=== PATIENT | female | born 1950 | race Caucasian/White ===

== ENCOUNTER 2022-05-21 14:33 | Outpatient (REF) | payer MEDICARE, SELFPAY ==
[2022-05-21 17:46] LABS: Alanine Aminotransferase 17 U/L (0-31); Albumin Level 4.6 g/dL (3.5-5.0); Alkaline Phosphatase 82 U/L (39-117); Anion Gap 17 (12-20); Aspartate Amino Transferase 21 U/L (5-31); Bilirubin Total 1.8 mg/dL (0.0-1.0); Blood Urea Nitrogen 8 mg/dL (9-16); Calcium 9.9 mg/dL (8.4-10.2); Carbon Dioxide 25 mmol/L (22-29); Chloride 104 mmol/L (96-108); Estimated Glomerular Filt Rate > 60; Glucose Random 122 mg/dL (60-115); Potassium 3.8 mmol/L (3.3-5.1); Sodium 142 mmol/L (135-145); Total Protein 7.1 g/dL (6.5-8.0)
== END 2022-05-21 14:34 | disposition home or self-care (01) ==
LOC: HO.MANLDS 14:33
PROVIDERS: Visit Provider Internal Medicine
DX: I48.91 Unspecified atrial fibrillation (principal)
CPT/HCPCS: 36415; 80053; 83735

== ENCOUNTER 2023-05-31 09:55 | Outpatient (REF) | payer MEDICARE, OTHER, SELFPAY ==
[2023-05-31 13:33] LABS: MANUAL DIFF FLAG NO
[2023-05-31 13:50] LABS: Basophils Percent Auto 0.6 % (0-2); Eosinophils Absolute Auto 0.2 X10*3/uL (0.0-0.4); Eosinophils Percent Auto 3.3 % (0-4); Hemoglobin 13.3 g/dl (12.0-16.0); Imm Gran Abs Auto 0.01 X10*3/uL (0.00-0.03); Imm Gran Pct Auto 0.2 % (0.0-0.4); Lymphocytes Absolute Auto 1.3 X10*3/uL (1.2-4.9); Lymphocytes Percent Auto 24.7 % (20-40); Mean Corpuscular HGB Conc 32.4 g/dl (31.0-35.0); Mean Corpuscular Hemoglobin 29.5 pg (27.0-33.0); Mean Corpuscular Volume 90.9 fL (80.0-98.0); Monocytes Absolute Auto 0.3 X10*3/uL (0.1-1.2); Monocytes Percent Auto 6.3 % (2-11); Neutrophils Absolute Auto 3.4 x10*3/uL (2.0-8.3); Neutrophils Percent Auto 64.9 % (45-73); Platelet Count 164 X10*3/uL (160-400); Red Blood Count 4.51 X10*6/uL (4.20-5.50); Red Cell Distribution Width 13.4 % (11.0-16.0); White Blood Count 5.2 X10*3/uL (4.8-10.8)
[2023-05-31 14:10] LABS: Alanine Aminotransferase 13 U/L (0-31); Alkaline Phosphatase 67 U/L (39-117); Anion Gap 12 (12-20); Aspartate Amino Transferase 18 U/L (5-31); Bilirubin Total 1.6 mg/dL (0.0-1.0); Blood Urea Nitrogen 10 mg/dL (9-16); Calcium 9.4 mg/dL (8.4-10.2); Carbon Dioxide 27 mmol/L (22-29); Chloride 107 mmol/L (96-108); Cholesterol 194 mg/dL; Estimated Glomerular Filt Rate > 60; Glucose Random 95 mg/dL (60-115); HDL Cholesterol 34 mg/dL; Iron 85 mcg/dL (30-160); LDL Cholesterol Calculated 103 mg/dl; Percent Iron Saturation 27 % (15-50); Sodium 142 mmol/L (135-145); Total Iron Binding Capacity 314 mcg/dL (228-428); Total Protein 6.7 g/dL (6.5-8.0); Triglycerides 287 mg/dL; Unsaturated Iron Binding 229 ug/dL
[2023-05-31 14:26] LABS: Erythrocyte Sedimentation Rate 32 MM/HR (0-20)
[2023-05-31 14:33] LABS: Ferritin 94 ng/mL (10-250); Free T4 (Free Thyroxine) 0.99 ng/dL (0.71-1.85); Thyroid Stimulating Hormone 1.63 uIU/mL (0.32-4.0); Vitamin D 25-OH Total 47.3 ng/mL (>30)
[2023-05-31 14:39] LABS: Vitamin B12 327 pg/mL (200-900)
== END 2023-05-31 09:56 | disposition home or self-care (01) ==
LOC: HO.MANLDS 09:55
PROVIDERS: Visit Provider Internal Medicine
DX: Z00.00 Encounter for general adult medical examination without abnormal findings (principal); E55.9 Vitamin D deficiency, unspecified; R41.3 Other amnesia
CPT/HCPCS: 36415; 80053; 80061; 82306; 82607; 82728; 82746; 83540; 84439; 84443; 85025; 85652

== ENCOUNTER 2025-10-01 16:08 | Outpatient (REF) | payer MEDICARE, OTHER, SELFPAY ==
[2025-10-01 18:54] LABS: Alanine Aminotransferase 19 U/L (0-31); Albumin Level 4.2 g/dL (3.5-5.0); Alkaline Phosphatase 77 U/L (39-117); Anion Gap 15 (12-20); Aspartate Amino Transferase 36 U/L (5-31); Blood Urea Nitrogen 15 mg/dL (9-16); Calcium 8.9 mg/dL (8.4-10.2); Carbon Dioxide 18 mmol/L (22-29); Chloride 111 mmol/L (96-108); Estimated Glomerular Filt Rate > 60; Potassium 3.8 mmol/L (3.3-5.1); Sodium 140 mmol/L (135-145); Total Protein 6.8 g/dL (6.5-8.0)
[2025-10-01 19:06] LABS: Vitamin B12 298 pg/mL (200-900)
[2025-10-01 19:13] LABS: Thyroid Stimulating Hormone 0.22 uIU/mL (0.32-4.0)
--- OUTSIDE RECORDS SUMMARY | 2025-10-01 20:06 | XMS_ITS | Encounter Summary ---
Author Organization [facility] Address [address] [place] [address] Phone Care Team Providers Care Strand Galvanizer Name Role Phone Cody Romano DO Primary Care Provider [phone] Weston Ballesteros MD Unavailable Neeraj Osuna MD, MPH Unavailable [phone] Reason for Referral * Physical Therapy (Routine) - Closed Specialty Diagnoses / Procedures Referred By Nallely elmore Referred To Contact Physical Therapy Diagnoses Encounter for rehabilitation Cody Romano DO Phone: tel: fax: [email or web address] [address] [place] [address] Phone: tel: Referral ID Status Reason Start Date Expiration Date Visits Re quested Visits Authorized Closed 03/17/2021 10/16/[phone] Encounter Details Date Type Department Care Team (Late st Contact Info) Description 02/26/2021 Transcribe Orders [facility] [address] [place] [phone] Cody Romano DO [address] [facility] [place] [address] Encounter for rehabilitation (Primary Dx) Social History Tobacco Use Types Packs/Day Years Used Date Smoking Tobacco: Never Smokeless Tobacco: Never Alcohol Use Standard Drinks/Week Comments Yes 1 (1 standard drink = 0.6 oz pur e alcohol) Comments No Sex and Gender Information Value Date Recorded Sex Assigned at Female 04/17/2019 2:03 PM EDT Legal Sex Female 2:48 PM EDT Gender Identity Female 04/17/2019 2:03 PM EDT Sexual Orientation Not on file documented as of this encounter Functional Status * Patient is deaf or has serious difficulty with hearing Answer Date of Assessment Author No 03/21/2017 10:48 AM Keren Solorzano PA-C * Patient is blind or has serious difficulty with seeing, even when wearing glasses Answer Date of Assessment Author No 03/21/2017 10:48 AM Keren Solorzano PA-C * Patient has serious difficulty walking or climbing stairs (5yr old or older) Answer Date of Assessment Author No 03/21/2017 10:48 AM Keren Solorzano PA-C * Patient has serious difficulty dressing or bathing (5yr old or older) Answer Date of Assessment Author No 03/21/2017 10:48 AM Keren Solorzano PA-C * Patient has serious difficulty doing errands alone such as visiting a doctor???s office or shopping, due to physical, mental, or emotional condition (15 years old or older) Answer Date of Assessment Author No 03/21/2017 10:48 AM Keren Solorzano PA-C documented as of this encounter Mental Status * Patient has serious difficulty concentrating, remembering, or making decisions due to physical, mental, or emotional condition Answer Entry Date Author No 03/21/2017 10:48 AM Keren Solorzano PA-C documented in this encounter Plan of Treatment Upcoming Encounters Date Type Department Care Team (Late st Contact Info) Description 10/25/2025 9:20 AM EST Office Visit [facility] [address] [address] [facility] 3rd Floor, [address] [place] [address] Nakul Castaneda MD [address] [place] [phone] [email or web address] Scheduled Referrals Name Type Priority Associated Diagnoses Orde r Schedule Ambulatory referral to [facility] Physical Therapy Outpatient Referral Routine Encounter for rehabilitation Ordered: 02/26/2021 documented as of this encounter Visit Diagnoses Diagnosis Encounter for rehabilitation- Primary documented in this encounter Additional Health Concerns Infection Onset Date Last Indicated Resolved Time MRSA Comment:Import to add expiration date of 01/02/2022 per Infection Control as part of historical infection status reconciliation 09/26/2010 09/26/2010 01/03/20 1:35 AM EDT Assessment Noted Time PHQ-2 Depression Total Score: 0 07/03/20 11:28 AM EDT documented as of this encounter Care Teams Strand Galvanizer Relationship Specialty Start Date End Date Cody Romano DO [email or web address] PCP - General Internal Medicine 01/08/16 Weston Ballesteros MD [email or web address] Thoracic Surgery 12/15/16 Neeraj Osuna MD, MPH [address] [place] [address] [email or web address] Dermatology 03/03/17 documented as of this encounter Additional Source Comments The information contained in this document represents components of the legal health record. It is not the complete legal health record.[facility]
--- OUTSIDE RECORDS SUMMARY | 2025-10-01 20:07 | XMS_ITS | Encounter Summary ---
Author Organization [facility] Address [address] [place] [address] Phone Care Team Providers Care Turret Lathe Tender Name Role Phone Aixatresa Cody Bergman DO Primary Care Provider [phone] Weston Ballesteros MD Unavailable Neeraj Osuna MD, MPH Unavailable [phone] Encounter Details Date Type Department Care Team (Late st Contact Info) Description 09/30/2016 Procedure Pass [facility] [address] [place] [address] Social History Tobacco Use Types Packs/Day Years Used Date Smoking Tobacco: Never Alcohol Use Standard Drinks/Week Comments No 0 (1 standard drink = 0.6 oz pur e alcohol) Comments Unknown Sex and Gender Information Value Date Recorded Sex Assigned at Female 04/17/2019 2:03 PM EDT Legal Sex Female 2:48 PM EDT Gender Identity Female 04/17/2019 2:03 PM EDT Sexual Orientation Not on file documented as of this encounter Plan of Treatment Upcoming Encounters Date Type Department Care Team (Late st Contact Info) Description 10/25/2025 9:20 AM EST Office Visit [facility] [address] [facility] 3rd Floor, [address] [place] [address] Nakul Castaneda MD [address] [place] [address] documented as of this encounter Visit Diagnoses Not on filedocumented in this encounter Additional Health Concerns Infection Onset Date Last Indicated Resolved Time MRSA Comment:Import to add expiration date of 01/02/2022 per Infection Control as part of historical infection status reconciliation 09/26/2010 09/26/2010 01/03/20 22 1:35 AM EDT documented as of this encounter Care Teams Turret Lathe Tender Relationship Specialty Start Date End Date Cody Romano DO [email or web address] PCP - General Internal Medicine 01/08/16 Weston Ballesteros MD [email or web address] Thoracic Surgery 12/15/16 Neeraj Osuna MD, MPH [address] [place] [address] [email or web address] Dermatology 03/03/17 documented as of this encounter Additional Source Comments The information contained in this document represents components of the legal health record. It is not the complete legal health record.[facility]
--- OUTSIDE RECORDS SUMMARY | 2025-10-01 20:07 | XMS_ITS | Encounter Summary ---
Author Organization [facility] Address [address] [place] [address] Phone Care Team Providers Care Box Lidder Name Role Phone Cody Romano Primary Care Provider [phone] Weston Ballesteros MD Unavailable Neeraj Osuna MD, MPH Unavailable [phone] Encounter Details Date Type Department Care Team (Late st Contact Info) Description 11/11/2020 Procedure Pass [facility], Ct Scan - [address] [address] Social History Tobacco Use Types Packs/Day Years [...] of Assessment Author No 03/21/2017 10:48 AM EDT Keren Carbajal PA-C * Patient is blind or has serious difficulty with seeing, even when wearing glasses Answer Date of Assessment Author No 03/21/2017 10:48 AM EDT Keren Carbajal PA-C * Patient has serious difficulty walking or climbing stairs (5yr old or older) Answer Date of Assessment Author No 03/21/2017 10:48 AM EDT Keren Carbajal PA-C * Patient has serious difficulty dressing or bathing (5yr old or older) Answer Date of Assessment Author No 03/21/2017 10:48 AM EDT Keren Carbajal PA-C * Patient has serious difficulty doing errands alone such as visiting a doctor???s office or shopping, due to physical, mental, or emotional condition (15 years old or older) Answer Date of Assessment Author No 03/21/2017 10:48 AM EDT Keren Carbajal PA-C documented as of this encounter Mental Status * Patient has serious difficulty concentrating, remembering, or making decisions due to physical, mental, or emotional condition Answer Entry Date Author No 03/21/2017 10:48 AM EDT Keren Carbajal PA-C documented in this encounter Plan of Treatment Upcoming Encounters Date Type Department Care Team (Late st Contact Info) Description 10/25/2025 9:20 AM EST Office Visit [facility] [address] [facility] 3rd Floor, [address] [place] [address] Nakul Castaneda MD [address] [place] [phone] [email or web address] documented as of this encounter Visit Diagnoses Not on filedocumented in this encounter Additional Health Concerns Infection Onset Date Last Indicated Resolved Time MRSA Comment:Import to add expiration date of 01/02/2022 per Infection Control as part of historical infection status reconciliation 09/26/2010 09/26/2010 01/03/20 22 1:35 AM EDT Assessment Noted Time PHQ-2 Depression Total Score: 0 07/03/20 11:28 AM EDT documented as of this encounter Care Teams Box Lidder Relationship Specialty Start Date End Date Cody Romano DO PCP - General Internal Medicine 01/08/16 Weston Ballesteros MD [email or web address] Thoracic Surgery 12/15/16 Neeraj Osuna MD, MPH [address] [place] [address] [email or web address] Dermatology 03/03/17 documented as of this encounter Additional Source Comments The information contained in this document represents components of the legal health record. It is not the complete legal health record.[facility]
--- OUTSIDE RECORDS SUMMARY | 2025-10-01 20:07 | XMS_ITS | Encounter Summary ---
Author Organization [facility] Address [address] [facility] [address] [place] [address] Phone Care Team Providers Care Serger Name Role Phone Cody Romano Primary Care Provider [phone] Weston Ballesteros MD Unavailable Neeraj Osuna MD, MPH Unavailable [phone] Encounter Details Date Type Department Care Team (Late st Contact Info) Description 05/24/2022 Procedure Pass [facility], [address] [address] Social History Tobacco Use Types Packs/Day Years Used Date Smoking Tobacco: Never Smokeless Tobacco: Never Alcohol Use Standard Drinks/Week Comments Not Currently 1 (1 standard drink = 0.6 oz [...] Description 10/25/2025 9:20 AM EST Office Visit [facility] [address] [facility] 3[address] Floor, [address] [place] [address] Nakul Castaneda MD [address] [place] [phone] [email or web address] documented as of this encounter Visit Diagnoses Not on filedocumented in this encounter Additional Health Concerns Assessment Noted Time PHQ-2 Depression Total Score: 0 07/03/20 20 11:28 AM EDT documented as of this encounter Care Teams Serger Relationship Specialty Start Date End Date Cody Romano DO [email or web address] PCP - General Internal Medicine 01/08/16 Weston Ballesteros MD [email or web address] Thoracic Surgery 12/15/16 Neeraj Osuna MD, MPH [address] [place] [address] [email or web address] Dermatology 03/03/17 documented as of this encounter Additional Source Comments The information contained in this document represents components of the legal health record. It is not the complete legal health record.[facility]
--- OUTSIDE RECORDS SUMMARY | 2025-10-01 20:07 | XMS_ITS | Encounter Summary ---
Author Organization [facility] Address [address] [facility] [address] [place] [address] Phone Care Team Providers Care Five Roll Refiner Batch Mixer Name Role Phone Cody Romano Primary Care Provider [phone] Weston Ballesteros MD Unavailable Neeraj Osuna MD, MPH Unavailable [phone] Encounter Details Date Type Department Care Team (Latest Contact Info) Description 08/31/2021 Transcribe Orders Virtual Department [address] [place] [address] India Sousa PA [address] [place] [address] Radiculopathy, lumbar region (Primary Dx) Social History Tobacco Use Types [...] No 03/21/2017 10:48 AM EDT Keren Carbajal PAAnthonyC * Patient is blind or has serious [...] Description 10/25/2025 9:20 AM EST Office Visit [facility] [address] [facility] 3rd Floor, [address] [place] [address] Nakul Castaneda MD [address] [place] [address] [email or web address] documented as of this encounter Results * XR HIP 2 VW LEFT PLUS PELVIS (09/17/2021 9:35 AM EST) Anatomical Region Laterality Modality Hip, Pelvis Computed Radiogr aphy 09/17/2021 10:2 9 AM EST Impressions 09/17/2021 10:35 AM EST No displaced fracture. 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 Narrative 09/17/2021 10:35 AM EST XR HIP 2 VW LEFT PLUS PELVIS COMPARISON: None HISTORY: Pain FINDINGS: Pelvis: Incidental note is made of levoscoliosis of the lumbar spine and presence of a large amount of stool which obscures fine anatomic detail and slightly limits evaluation. There is substantial sclerosis around the pubic symphysis. Sacral arches are intact and is high joints are patent. Left hip: There are findings consistent with mild to moderate attrition with loss of cartilage space at the left hip joint. Bone mineralization is within normal limits. There is no significant bone lesion, no evidence of fracture. Procedure Note Ronn Aguirre MD - 09/17/2021 XR HIP 2 VW LEFT PLUS PELVIS COMPARISON: None HISTORY: Pain FINDINGS: Pelvis: Incidental note is made of levoscoliosis of the lumbar spine andpresence of a large amount of stool which obscures fine anatomic detailand slightly limits evaluation. There is substantial sclerosis around thepubic symphysis. Sacral arches are intact and is high joints are patent. Left hip: There are findings consistent with mild to moderate attritionwith loss of cartilage space at the left hip joint. Bone mineralization iswithin normal limits. There is no significant bone lesion, no evidence offracture. IMPRESSION: No displaced fracture. 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 [place] NEWELL IMG XR PELVIS Final Resu lt documented in this encounter Visit Diagnoses Diagnosis Radiculopathy, lumbar region- Primary Thoracic or lumbosacral neuritis or radiculitis, unspecified Radiculopathy, lumbar region Thoracic or lumbosacral neuritis or radiculitis, unspecified documented in this encounter Additional Health Concerns Infection Onset Date Last Indicated Resolved Time MRSA Comment:Import to add expiration date of 01/02/2022 per Infection Control as part of historical infection status reconciliation 09/26/2010 09/26/2010 01/03/20 22 1:35 AM EDT Assessment Noted Time PHQ-2 Depression Total Score: 0 07/03/20 20 11:28 AM EDT documented as of this encounter Care Teams Five Roll Refiner Batch Mixer Relationship Specialty Start Date End Date Cody Romano DO PCP - General Internal Medicine 01/08/16 Weston Ballesteros MD [email or web address] Thoracic Surgery 12/15/16 Neeraj Osuna MD, MPH [address] [place] [address] [email or web address] Dermatology 03/03/17 documented as of this encounter Additional Source Comments The information contained in this document represents components of the legal health record. It is not the complete legal health record.[facility]
--- OUTSIDE RECORDS SUMMARY | 2025-10-01 20:07 | XMS_ITS | Encounter Summary ---
Author Organization [facility] Address [address] [place] [address] Phone Care Team Providers Care Coater Slate Name Role Phone Cody Romano Pacheco REDMAN Primary Care Provider [phone] Weston Ballesteros MD Unavailable Neeraj Osuna MD, MPH Unavailable [phone] Reason for Referral * MRI/CAT Scan - Closed Specialty Diagnoses / Procedures Referred By Contlexie t Referred To Contact Radiology Diagnoses Memory impairment Other amnesia Procedures CT Head Perlita Campos PA Phone: tel: fax: Referral ID Status Reason Start Date Expiration Date Visits Re quested Visits Authorized [id number] Closed 11/11/2020 11/11/2021 1 1 Encounter Details Date Type Department Care Team (Latest Contact Info) Description 11/11/2020 Transcribe Orders Virtual Department [address] [place] [address] Perlita Campos PA [address] [place] [address] [place] [address] Memory impairment (Primary Dx); Other amnesia Social History Tobacco Use Types Packs/Day Years [...] Description 10/25/2025 9:20 AM EST Office Visit [facility] [address] [facility] 3rd Floor, [address] [place] [address] Nakul Castaneda MD [address] [place] [phone] [email or web address] documented as of this encounter Results * CT HEAD WITHOUT CONTRAST (11/21/2020 9:33 AM EST) Anatomical Region Laterality Modality Head Computed Tomogra phy 11/21/2020 9:34 AM EST Impressions 11/21/2020 9:41 AM EST 1.No acute intracranial hemorrhage, infarct or mass. 2.Mild white matter disease which may be due to chronic microangiopathy. 3.Sphenoid sinus disease. Narrative 11/21/2020 9:41 AM EST COMPARISON: None. TECHNIQUE: Nonenhanced head CT from skull base to vertex with multi-planar reformats. Manual dose reduction technique tailored for patient and site of imaging. CT HEAD FINDINGS: Brain: There is no acute intracranial hemorrhage, infarct, or intracranial mass. No mass effect, midline shift or extra-axial fluid collections. Miller-white matter differentiation is preserved. Mild subcortical and deep white matter hypodensity. Basal cisterns are patent. Pituitary gland is not enlarged. Ventricles: No hydrocephalus. Mild ventricular enlargement due to atrophy. Vasculature: Mild bilateral cavernous carotid artery and moderate distal left vertebral artery atherosclerosis. Orbits: Normal. Mastoids/Middle Ear/Ext Canals/Paranasal Sinuses: Small sphenoid sinus air-fluid levels. Scalp/Soft Tissues: Soft tissues are unremarkable. Bones: No acute bony abnormality. Incidental developmental flattening of the superior right frontal bone. Procedure Note Zackery Watson MD - 11/21/2020 COMPARISON: None. TECHNIQUE: Nonenhanced head CT from skull base to vertex with multi- planarreformats. Manual dose reduction technique tailored for patient and siteof imaging. CT HEAD FINDINGS: Brain: There is no acute intracranial hemorrhage, infarct, orintracranial mass. No mass effect, midline shift or extra-axial fluidcollections. Miller-white matter differentiation is preserved. Mildsubcortical and deep white matter hypodensity. Basal cisterns are patent.Pituitary gland is not enlarged. Ventricles: No hydrocephalus. Mild ventricular enlargement due toatrophy. Vasculature: Mild bilateral cavernous carotid artery and moderate distalleft vertebral artery atherosclerosis. Orbits: Normal. Mastoids/Middle Ear/Ext Canals/Paranasal Sinuses: Small sphenoid sinusair-fluid levels. Scalp/Soft Tissues: Soft tissues are unremarkable. Bones: No acute bony abnormality. Incidental developmental flattening ofthe superior right frontal bone. IMPRESSION: 1.No acute intracranial hemorrhage, infarct or mass. 2.Mild white matter disease which may be due to chronic microangiopathy. 3.Sphenoid sinus disease. Perlita NEWELL IMG CT HEAD/NECK Final Resu lt documented in this encounter Visit Diagnoses Diagnosis Memory impairment- Primary Memory loss Other amnesia Memory impairment Memory loss Other amnesia documented in this encounter Additional Health Concerns Infection Onset Date Last Indicated Resolved Time MRSA Comment:Import to add expiration date of 01/02/2022 per Infection Control as part of historical infection status reconciliation 09/26/2010 09/26/2010 01/03/20 22 1:35 AM EDT Assessment Noted Time PHQ-2 Depression Total Score: 0 07/03/20 20 11:28 AM EDT documented as of this encounter Care Teams Coater Slate Relationship Specialty Start Date End Date Cody Romano DO [email or web address] PCP - General Internal Medicine 01/08/16 Weston Ballesteros MD [email or web address] Thoracic Surgery 12/15/16 Neeraj Osuna MD, MPH [address] [place] [phone] [email or web address] [email or web address] 03/03/17 documented as of this encounter Additional Source Comments The information contained in this document represents components of the legal health record. It is not the complete legal health record.[facility]
--- OUTSIDE RECORDS SUMMARY | 2025-10-01 20:07 | XMS_ITS | Continuity of Care Document ---
Author Organization [place] - [facility], [facility] Address [address] [place] [address] Assessment Encounter Date Assessment Date Assessment LastModified by Organization Details LastModified Time 10/01/2025 10/01/2025 [id number] [place] [id number] (CARE ASSISTANT) MDM MODERATE MUST MEET 2 OUT OF 3 ELEMENTS: PROBLEMS, DATA OR RISK ELEMENT 1: PROBLEMS ADDRESSED 1 OR MORE CHRONIC ILLNESS WITH EXACERBATION OR 2 OR MORE STABLE CHRONIC ILLNESSES OR 1 UNDIAGNOSED NEW PROBLEM OR 1 ACUTE ILLNESS W/SYMPTOMS OR 1 ACUTE COMPLICATED INJURY ELEMENT 2: DATA MUST MEET 1 OF 3 CATEGORIES CATEGORY 1: REVIEW OF PRIOR EXTERNAL NOTES, REVIEW OF RESULTS, ORDERING OF EACH TEST, ASSESSMENT REQUIRING INDEPENDENT HISTORIAN OR CATEGORY 2: INDEPENDENT INTERPRETATION OF TESTS BY ANOTHER PHYSICIAN OR SPECIALIST OR CATEGORY 3: DISCUSSION OF MGT OR TEST INTERPRETATION W/EXTERNAL PHYSICIAN OR SPECIALIST ELEMENT 3: RISK RISK OF COMPLICATIONS AND/OR MORBIDITY OR MORTALITY OF PATIENT MANAGEMENT PROVIDER MUST THOROUGHLY DOCUMENT EACH ELEMENT THAT IS COVERED Not available 10/01/2025 16:03:12 Plan of Treatment Reminders Order Date Submit Date Provider Last Modified By Organization Details Last Modified Time Details Appointments MEDICARE ANNUAL WELLNESS 2024 03:45P M DR PENNINGTON Not available Not available Not available MEDICARE ANNUAL WELLNESS 2026 03:45P M DR PENNINGTON Not available Not available Not available Lab vitamin D, 25-hydrox y, total, serum 2024 025 [facility], [address] [place] [address], [id number], 10/01/2025 16:10:42 vitamin B12, serum 2024 025 [facility], [address] [place] [address], [id number], 10/01/2025 16:10:41 TSH, serum or plasma 2024 [facility], [address] [place] [address], [id number], 10/01/2025 16:10:42 CBC 2024 [facility], [address] [place] [address], [id number], 10/01/2025 16:10:42 CMP, serum or plasma 2024 [facility], [address] [place] [address], [id number], 10/01/2025 16:10:41 Referral None recorded. Procedures None recorded. Surgeries None recorded. Imaging XR, chest, 2 view 2024 [facility], [address], [place], [address], 10/01/2025 16:10:43 Medication Orders None recorded. Patient TargetsNo targets recorded. Patient Instructions Encounter Date Encounter Id Patient Instructions Last Modified By Organization Details Last Modified Time 10/01/2025 [id number] alzheimer's disease: care instructions Not available 10/01/2025 16:04:41 pulse oximetry* Not available 10/01/2025 16:04:41 Reason for Referral None Reported. Results Created Date Observation Date Name Description Value Unit Range Abnormal Flag Note LastModifiedBy Organization Detail LastModifiedTime 10/01/2010/01/2025 pulse oxime try* Result 97 Not Available [facility] [address], [place], [address], 08/26/2025 14:25:48 Result Notes None recorded. 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 Not Available [facility] 3 11:58:10 Ganglion cyst Active 2017 finger Not Available [facility] 3 11:58:11 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 201709/27/2018 Cody Pennington, DO [address] [place], [address], [facility] 8 11:22:34 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 Not Available [facility] 3 11:58:10 Fracture of tibial plateau 211212580 Active 2018 Not Available [facility] 3 11:58:10 Alopecia 71401246 Active 2018 Not Available [facility] 3 11:58:11 Rosacea 349418844 Active 2018 Not Available [facility] 3 11:58:10 Herpes zoster with complica tion 30470843 Active 2019 Not Available [facility] 3 11:58:10 COVID-19 523293978 Active 2019 Not Available [facility] 3 11:58:11 Rapid atrial fibrilla tion 488754490 Active 2021 Not Available [facility] 3 11:58:10 Paroxysm al atrial fibrilla tion 907492299 Active 2021 Not Available [facility] 3 11:58:10 Atrial fibrilla tion 19159514 Active 2021 Not Available [facility] 3 11:58:10 Actinic keratosi s 169885728 Active 2021 Not Available [facility] 3 11:58:10 Bilatera l earache 386177896 Active 2021 Not Available [facility] 3 11:58:10 Lipoma of skin 380298787 Active 2022 Not Available [facility] 3 11:58:10 Memory impairme nt 958313501 Active 2022 Not Available [facility] 3 11:58:10 Vitamin D deficien cy 85273220 Active 2022 Not Available [facility] 3 11:58:10 Alzheime r's disease 17399278 Active 2023 APO E4/APOE4 E4 E4 genotype Cody Monet DO Rosalina [address] [place] [address], [phone], [facility] 4 10:42:04 Persiste nt cough 589085174 Active 2024 Cody Monet Rosalina, DO [address] [place] [address], [phone], [facility] 5 16:04:24 Problem Notes None recorded. Medical Equipment None Reported. Allergies Allergen ID Allergen Name Allergen Category Reaction Reaction Severity Criticality Documentation Date Start Date Code Code System Note Provider Name and Address Organization Details Recorded Time 92704 levofloxa tristen medicatio n Not available Not available Not available 10/01/20252018 97230 RxNorm Not Available [facility]el[facility] - External Data Service - prod 5 03:14:04 1765 Levaquin medicatio n Not available Not available Not available 04/21/2018 07444 2 [facility] 8 15:25:12 Medications Name Sig Start Date Stop Date Status Note LastModified by Organization Details LastModified Time alendronate 10 mg tablet take 1 po q weekly 09/27 completed Not Available Not Available Not Available prednisone 10 mg tablet TAKE 4 TABLETS BY MOUTH DAILY WITH BREAKFAST . 10/01 completed Not Available Not Available Not Available doxycycline hyclate 100 mg capsule Take 1 capsule twice a day by oral route. 02/21 completed Not Available Not Available Not Available donepezil 5 mg tablet PLEASE SEE ATTACHED FOR DETAILED DIRECTION S 09/12 completed Not Available Not Available Not Available azithromyci n 250 mg tablet TAKE 2 TABLETS BY MOUTH TODAY, THEN TAKE 1 TABLET DAILY FOR 4 DAYS 04/13 completed Not Available Not Available Not Available aspirin 325 mg tablet Take 1 tablet every day by oral route. 09/12 completed OTC Not Available Not Available Not Available metoprolol tartrate 100 mg tablet TAKE 1.5 TABLETS BY MOUTH 2 TIMES A DAY. 10/01 completed Not Available Not Available Not Available metoprolol succinate ER 50 mg tablet,exte nded release 24 hr TAKE 1 TABLET BY MOUTH EVERYDAY 08/06 completed Not Available Not Available Not Available ketotifen 0.025 % (0.035 %) eye drops INSTILL 1 DROP INTO BOTH EYES TWICE A DAY 04/13 completed Not Available Not Available Not Available valacyclovi r 1 gram tablet Take 1 tablet every 8 hours by oral route for 7 days. 01/19 completed Not Available Not Available Not Available donepezil 10 mg tablet TAKE 1 TABLET BY MOUTH EVERY DAY 09/12 completed Not Available Not Available Not Available prednisone 20 mg tablet 40mg qd 01/19 completed Not Available Not Available Not Available alendronate 70 mg tablet TAKE 1 TABLET BY MOUTH ONCE A WEEK 10/05 completed Not Available Not Available Not Available metoprolol succinate ER 100 mg tablet,exte nded release 24 hr TAKE 1 TABLET BY MOUTH EVERY DAY active Not Available Not Available No t Available prednisone 5 mg tablet 10/01 completed Not Available Not Available Not Available digoxin 250 mcg (0.25 mg) tablet TAKE 1 TABLET BY MOUTH EVERY DAY 09/12 completed Not Available Not Available Not Available valacyclovi r 500 mg tablet Take 1 tablet 3 times a day by oral route for 7 days. 06/20 completed Not Available Not Available Not Available sulfamethox azole 800 mg-trimetho prim 160 mg tablet TAKE 1 TABLET BY MOUTH TWICE A DAY FOR 10 DAYS 09/12 completed Not Available Not Available Not Available dexamethaso ne 0.5 mg/5 mL oral solution 04/24 completed Not Available Not Available Not Available dexamethaso ne 0.5 mg/5 mL oral elixir 04/24 completed Not Available Not Available Not Available mycophenola te mofetil 500 mg tablet Take 1 tablet twice a day by oral route for 30 days. 12/15 completed Not Available Not Available Not Available Tessalon Perles 100 mg capsule Take 1 capsule 3 times a day by oral route. 12/19 completed Not Available Not Available Not Available lorazepam 0.5 mg tablet Take 1 tablet every 6 hours by oral route as needed. 08/18 completed Not Available Not Available Not Available prednisone 1 mg tablet Take 2 tablets every day by oral route for 75 days. 12/06 completed Not Available Not Available Not Available amitriptyli ne 10 mg tablet TAKE 2 TABLETS BY MOUTH EVERYDAY AT BEDTIME 10/05 completed Not Available Not Available Not Available doxycycline monohydrate 100 mg capsule TAKE 1 CAPSULE BY MOUTH TWICE A DAY FOR 7 DAYS 09/12 completed Not Available Not Available Not Available oseltamivir 75 mg capsule Take 1 capsule twice a day by oral route. 12/15 completed Not Available Not Available Not Available triamcinolo ne acetonide 0.1 % topical ointment APPLY TO AFFECTED AREA OF LIPS TWICE DAILY FOR 1 WEEK, BREAK FOR 1 WEEK, REPEAT NEEDED. 09/12 completed Not Available Not Available Not Available betamethaso ne dipropionat e 0.05 % topical cream 06/20 completed Not Available Not Available Not Available gabapentin 300 mg capsule TAKE 2 CAPSULES BY MOUTH 3 TIMES A DAY 01/19 completed Not Available Not Available Not Available diclofenac sodium 75 mg tablet,vanessa yed release Take 1 tablet twice a day by oral route for 30 days. 07/20 completed Not Available Not Available Not Available mupirocin 2 % topical ointment APPLY A THIN FILM TO EXCORIATE D AREAS EVERY 8 HOURS X5 DAYS 09/12 completed Not Available Not Available Not Available digoxin 125 mcg (0.125 mg) tablet TAKE 1 TABLET BY MOUTH EVERY DAY FOR 5 DAYS 09/12 completed Not Available Not Available Not Available Cheratussin AC 10 mg-100 mg/5 mL oral liquid Take 10 mL every 4 hours by oral route. 12/19 completed Not Available Not Available Not Available hydrocortis one 2.5 % topical ointment APPLY THREE TIMES DAY TO AFFECTED AREAS ON THE LIPS FOR 1 WEEK, BREAK FOR 1 WEEK, REPEAT NEEDED. 09/12 completed Not Available Not Available Not Available amoxicillin 875 mg-potassiu m clavulanate 125 mg tablet TAKE 1 TABLET EVERY 12 HOURS BY ORAL ROUTE FOR 7 DAYS. 01/19 completed Not Available Not Available Not Available Ventolin HFA 90 mcg/actuati on aerosol inhaler Inhale 2 puffs every 6 hours by inhalatio n route. 02/21 completed Not Available Not Available Not Available oxycodone 5 mg tablet Take 1 tablet 4 times a day by oral route as needed for 7 days. 08/18 completed Not Available Not Available Not Available divalproex ER 250 mg tablet,exte nded release 24 hr TAKE 1 TABLET EVERY DAY BY ORAL ROUTE FOR 30 DAYS. 01/19 completed Not Available Not Available Not Available duloxetine 30 mg capsule,del ayed release TAKE 1 CAPSULE BY MOUTH EVERY OTHER DAY 10/05 completed Not Available Not Available Not Available pregabalin 50 mg capsule TAKE 1 CAPSULE BY MOUTH 3 TIMES A DAY 10/05 completed Not Available Not Available Not Available folic acid once daily active Not Available Not Available No t Available biotin 07/20 completed Not Available Not Available Not Available lidocaine Topical 5% 04/13 completed Not Available Not Available Not Available Salonpas prn 09/12 completed Not Available Not Available Not Available multivitami n active Not Available Not Available Not Available oxycodone 10 mg tablet TAKE 1 TABLET BY MOUTH EVERY 4 HOURS NEEDED FOR 7 DAYS. 10/05 completed Not Available Not Available Not Available calcium 1,000 mg (as carbonate)- vitamin D3 20 mcg (800 unit) tablet Take 2 tablets every day by oral route. active Not Available Not Available No t Available Xarelto 20 mg tablet Take 1 tablet every day by oral route for 30 days. 10/01 completed Not Available Not Available Not Available Eliquis 5 mg tablet TAKE 1 TABLET BY MOUTH TWICE A DAY active Not Available Not Available No t Available digoxin 62.5 mcg (0.0625 mg) tablet Take 1 tablet every day by oral route for 5 days. 09/12 completed Not Available Not Available Not Available Tylenol 325 mg capsule Take 2 capsules as needed by oral route. 10/05 completed Not Available Not Available Not Available Vitals Date Recorded Body weight Body mass index (BMI) Body height Heart rate Oxygen saturation Systolic And Diastolic Provider Name and Address Organization Details Last Updated DateTime 5 27198.3 6 g 25.2 kg/m2 162.56 cm 73 /min 97 % 136/72 mm[Hg] Leeanna Lambert [facility] 5 15:41:30 Social History Question Answer Notes LastModified by Organizat ion Details LastModified Time Tobacco Smoking Status Never Smoker Not Available [facility] 08/19/2020 03:36:24 What Was The Date Of Your Most Recent Tobacco Screening? 10/01/2025 [email or web address] Information not available 10/01/2025 Sex: Unknown Functional Status Question Answer Note LastModified by Organization D etails LastModified Time Do you or have you ever used any other forms of tobacco or nicotine? No [email or web address] Information not available 04/13/2023 Mental Status None recorded. Family History Nothing Reported. Medical History No medical history recorded. Gynecological HistoryNo gynecological history recorded. Obstetrics History GPAL:G 0 P 0 0 0 0 Immunizations Vaccine Type Date Status Note Provider Nam e and Address Organization Details Recorded Time Influenza, split virus, quadrivalent, preservative 8 completed Not Available [facility] 11/26/2022 11:30:14 influenza, unspecified formulation 2 completed Not Available [facility] 11/26/2022 11:30:14 influenza, unspecified formulation 4 completed Aliyah valle [facility] 07/02/2024 08:06:30 Influenza, split virus, quadrivalent, preservative 9 completed Not Available [facility] 11/26/2022 11:30:14 Past Encounters Encounter ID Performer Location Encounter Start Date Encounter Closed Date Diagnosis/Indication Diagnosis SNOMED-CT Code Diagnosis ICD10 Code Diagnosis IMO Codes Diagnosis Note [id number] DO [facility] [address] [place] [address] 10/01/2025 15:33:06 10/01/2025 16:09:22 Depression screening 070162915 Z13.31 neg Atrial fibrillation 4943 6004 I48.91 currently stable and on xarelto and we have her on metoprolol stable so far and gets a monitor next month and rechk in cardiol in 2 month Hyperlipidemia 78558712 E78.5 we nadia be needing to check levels in a few months1 Alzheimer's disease 2692 9004 G30.9 needs to be seen by dr shah again for an update Vitamin D deficiency 347 72821 E55.9 cont supp Persistent cough 0464107 02 R05.3 093228 Health Concerns Section Related Observation LastModified by Organization Detai ls LastModified Time None Recorded Concern Status LastModified by Organization Details LastModified Time None Recorded Payers Encounter Date Sequence Insurance Name Policy Number Policy Hobbs Covered Member ID Hobbs Member ID Guarantor Name 10/01/2025 1 MEDICARE B-[employer]: [employer] Brittany Johnston [id number] Brittany Johnston 10/01/2025 2 [facility] - PLAN 1 (MEDICARE SUPPLEMENT) [id number] Brittany Johnston [id number] Brittany Johnston Notes Date Note Type Note Provider Name and Address Organization Details Recorded Time 025 text/ht ml Care Management - Atrial FibrillationReported by PatientCare ManagementFor medications, patient reportscompliant with medication. For prior imaging, patient reportsechocardiogramandrecent ecg.Interim HistoryFor associated symptoms, patient reportsno dizziness,no chest pain,no easy bruisability, andno rapid heart rate. Care Management - HyperlipidemiaReported by PatientHPIFor control, patient reportsusually well controlled,improving, andat goal. For complications, patient reportsno coronary artery disease,no heart attack,no cardiovascular disease,no pancreatitis, andno stroke.ROS as noted in the HPI patient here for usual followup exam. Has no issues or major problems. No side effects with medication or issue with pharmacy. Cody Pennington, DO [address], [place], [address], [facility] 10/01/2025 16:07:08 OBGyn Episode No OBEpisode recorded.
--- OUTSIDE RECORDS SUMMARY | 2025-10-01 20:07 | XMS_ITS | Encounter Summary ---
Author Organization [facility] Address [address] [place] [address] Phone Care Team Providers Care Paying Teller Name Role Phone Aixatresa Cody Bergman DO Primary Care Provider [phone] Weston Ballesteros MD Unavailable Neeraj Osuna MD, MPH Unavailable [phone] Encounter Details Date Type Department Care Team (Late st Contact Info) Description 03/18/2017 Procedure Pass [facility] Periop [address] [place] [address] Social History Tobacco Use Types Packs/Day Years [...] Description 10/25/2025 9:20 AM EST Office Visit [facility] [address] [place] [address] [address] Floor, [address] [place] [address] Nakul Castaneda MD [address] [place] [address] documented as of this encounter Visit Diagnoses Not on filedocumented in this encounter Additional Health Concerns Infection Onset Date Last Indicated Resolved Time MRSA Comment:Import to add expiration date of 01/02/2022 per Infection Control as part of historical infection status reconciliation 09/26/2010 09/26/2010 01/03/20 22 1:35 AM EDT documented as of this encounter Care Teams Paying Teller Relationship Specialty Start Date End Date Cody Romano DO [email or web address] PCP - General Internal Medicine 01/08/16 Weston Ballesteros MD [email or web address] [email or web address] Surgery 12/15/16 Neeraj Osuna MD, MPH [address] [place] [address] [email or web address] Dermatology 03/03/17 documented as of this encounter Additional Source Comments The information contained in this document represents components of the legal health record. It is not the complete legal health record.[facility]
--- OUTSIDE RECORDS SUMMARY | 2025-10-01 20:07 | XMS_ITS | Encounter Summary ---
Author Organization [facility] Address [address] [place] [address] Phone Care Team Providers Care Scrubber Machine Tender Name Role Phone Cody Romano Primary Care Provider [phone] Weston Ballesteros MD Unavailable Neeraj Osuna MD, MPH Unavailable [phone] Encounter Details Date Type Department Care Team (Late st Contact Info) Description 03/31/2017 Procedure Pass [facility] [address] [place] [address] Social History Tobacco Use Types Packs/Day Years [...] of Assessment Author No 03/21/2017 10:48 AM EDKeren Philip PA-C * Patient has serious difficulty dressing [...] Description 10/25/2025 9:20 AM EST Office Visit [facility] [address] 3rd Floor, [address] [place] [address] Nakul Castaneda MD [address] [place] [id number] [email or web address] documented as of this encounter Visit Diagnoses Not on filedocumented in this encounter Additional Health Concerns Infection Onset Date Last Indicated Resolved Time MRSA Comment:Import to add expiration date of 01/02/2022 per Infection Control as part of historical infection status reconciliation 09/26/2010 09/26/2010 01/03/20 22 1:35 AM EDT documented as of this encounter Care Teams Scrubber Machine Tender Relationship Specialty Start Date End Date Cody Romano DO PCP - General Internal Medicine 01/08/16 Weston Ballesteros MD [email or web address] Thoracic Surgery 12/15/16 Neeraj Osuna MD, MPH [address] [place] [id number] [email or web address] Dermatology 03/03/17 documented as of this encounter Additional Source Comments The information contained in this document represents components of the legal health record. It is not the complete legal health record.[facility]
--- OUTSIDE RECORDS SUMMARY | 2025-10-01 20:07 | XMS_ITS | Encounter Summary ---
Author Organization [facility] Address [address] [place] [address] Phone Care Team Providers Care Clerical Coordinator Name Role Phone Cody Romano Pacheco REDMAN Primary Care Provider [phone] Weston Ballesteros MD Unavailable Neeraj Osuna MD, MPH Unavailable [phone] Encounter Details Date Type Department Care Team (Late st Contact Info) Description 12/06/2024 Procedure Pass [facility] [address] [place] [address] Social History Tobacco Use Types Packs/Day Years Used Date Smoking Tobacco: Never Smokeless Tobacco: Never Alcohol Use Standard Drinks/Week Comments Not Currently 1 (1 standard drink = 0.6 oz pur e alcohol) Education Answer Date Recorded Are you interested in more education? Not on shivani e 02/11/2023 Are you concerned about learning? Not on file 02/11/2023 No 02/11/2023 No 02/11/2023 Digital Access Answer Date Recorded No 03/14/2023 No 03/14/2023 Reliable internet access at home? Not on file 03/14/2023 Device with a working camera? Not on file Intimate Partner Violence Answer Date R ecorded Are you denied basic needs s uch as food, clothing, or medical care? Deferred 08/23/2024 In the past 12 months have y ou been in a relationship with a person who hurts, threatens, or tries to control you? Deferred 08/23/2024 Are you denied basic needs s uch as food, clothing, or medical care? Deferred 08/23/2024 In the past 12 months have y ou been in a relationship with a person who hurts, threatens, or tries to control you? Deferred 08/23/2024 Comments No Sex and Gender Information Value [...] Description 10/25/2025 9:20 AM EST Office Visit [facility] [address] 3rd Floor, [address] [place] [address] Nakul Castaneda MD [address] [place] [phone] [email or web address] documented as of this encounter Visit Diagnoses Not on filedocumented in this encounter Additional Health Concerns Assessment Noted Time PHQ-2 Depression Total Score: 0 07/03/20 20 11:28 AM EDT documented as of this encounter Care Teams Clerical Coordinator Relationship Specialty Start Date End Date Cody Romano DO [email or web address] PCP - General Internal Medicine 01/08/16 Weston Ballesteros MD [email or web address] Surgery 12/15/16 Neeraj Osuna MD, MPH [address] [place] [phone] [email or web address] [email or web address] 03/03/17 documented as of this encounter Additional Source Comments The information contained in this document represents components of the legal health record. It is not the complete legal health record.[facility]
--- OUTSIDE RECORDS SUMMARY | 2025-10-01 20:07 | XMS_ITS | Encounter Summary ---
Author Organization [facility] Address [address] [place] [address] Phone Care Team Providers Care Foreign Exchange Services Manager Name Role Phone Aixatresa Cody Bergman DO Primary Care Provider [phone] Weston Ballesteros MD Unavailable Neeraj Osuna MD, MPH Unavailable [phone] Encounter Details Date Type Department Care Team (Late st Contact Info) Description 09/30/2016 Procedure Pass [facility] Radiology [address] [place] [address] Social History Tobacco Use Types Packs/Day Years Used Date Smoking Tobacco: Never Comments Unknown Sex and Gender Information Value Date Recorded Sex Assigned at Female 04/17/2019 2:03 PM EDT Legal Sex Female 2:48 PM EDT Gender Identity Female 04/17/2019 2:03 PM EDT Sexual Orientation Not on file documented as of this encounter Plan of Treatment Upcoming Encounters Date Type Department Care Team (Late st Contact Info) Description 10/25/2025 9:20 AM EST Office Visit [facility] [address], [address] [place] [address] Nakul Castaneda MD [address] [place] [address] documented as of this encounter Visit Diagnoses Not on filedocumented in this encounter Additional Health Concerns Infection Onset Date Last Indicated Resolved Time MRSA Comment:Import to add expiration date of 01/02/2022 per Infection Control as part of historical infection status reconciliation 09/26/2010 09/26/2010 01/03/20 22 1:35 AM EDT documented as of this encounter Care Teams Foreign Exchange Services Manager Relationship Specialty Start Date End Date Cody Romano DO [email or web address] PCP - General Internal Medicine 01/08/16 Weston Ballesteros MD [email or web address] Surgery 12/15/16 Neeraj Osuna MD, MPH [address] [place] [id number] [email or web address] Dermatology 03/03/17 documented as of this encounter Additional Source Comments The information contained in this document represents components of the legal health record. It is not the complete legal health record.[facility]
--- OUTSIDE RECORDS SUMMARY | 2025-10-01 20:07 | XMS_ITS | Clinical Summary ---
Author Organization [facility] Address [address] [place] [address] Phone Care Team Providers Care Energy Trading Analyst Name Role Phone Cody Romano Primary Care Provider [phone] Weston Ballesteros MD Unavailable Neeraj Osuna MD, MPH Unavailable [phone] Allergies Active Allergy Reactions Criticality Noted Date Comments Levofloxacin 01/25/2019 Medications MULTIVITAMIN ORAL Take by mouth. Active acetaminophen (TYLENOL) 325 mg capsule Tylenol 325 mg capsule Take 2 capsules as needed by oral route. Active folic acid (FOLVITE) 800 MCG tablet Active calcium citrate (CALCITRATE) 950 mg (200 mg elemental) tablet Take 1 tablet by mouth daily. Active metoprolol succinate (TOPROL-XL) 100 MG 24 hr tablet Take 1 tablet (100 mg total) by mouth daily. 90 tablet 3 04/16/2025 Active ELIQUIS 5 mg tabletIndicatio ns:Medication refill TAKE 1 TABLET BY MOUTH TWICE A DAY 90 tablet 3 04/23/2025 Active Active Problems Problem Noted Date Diagnosed Date Anxiety 02/14/2023 02/14/2023 Neuropathy of lower extremity 02/14/2023 Postherpetic neuralgia 02/14/2023 Paroxysmal atrial fibrillation 05/25/2022 0 02/14/2023 Assessment & Plan (04/16/2025 9:14 AM EDT): Patient is status post cardioversion. Her EKG shows sinus bradycardia with a PVC. Patient is feeling improved since her procedure. She states her shortness of breath has resolved. She is currently on metoprolol tartrate 150 mg twice daily. Her heart rate is 48 on EKG today. I will reduce her metoprolol back down to 100 mg and switch her to metoprolol succinate so she only has to take it once a day. Patient will start taking metoprolol tartrate 100 mg twice daily until the prescription runs out and then switch to metoprolol succinate 100 mg once a day. She is on Eliquis for CVA prophylaxis and denies any bleeding issues. She is tolerating these medications well. Will have her return in 6 months or sooner if needed. Plan: Switch to metoprolol succinate at 100 mg daily Continue Eliquis Follow-up in 6 months Assessment & Plan (10/25/2024 9:18 AM EST): Based on her most recent Holter monitor shows she is in atrial fibrillation 100% of the time. She is anticoagulated on apixaban 5 mg twice daily. She is on metoprolol 100 mg daily we are going to increase this to 100 mg twice daily to see if we can get her to slow her rate. She was on digoxin in the past however she was not able to tolerate this due to a lack of appetite and was not eating. We did discuss starting her on an antiarrhythmic however would like to hold off on amiodarone as she already has a abnormality to her LFTs. Potentially will start flecainide but will obtain a stress test first. Will bring her back in 1 week to monitor her heart rate with an EKG. She was given red flag warning signs of hypotension and when to call this office in case metoprolol causes this. We will consider changing her medication to possibly diltiazem. I will also have her see Dr. Castaneda. Assessment & Plan (09/11/2024 11:54 AM EST): She was noted to have atrial fibrillation prior to one of her infusions in early July. She comes here today for further management of her atrial fibrillation. She is completely asymptomatic. On EKG today she does have an atrial fibrillation with an elevated rate of 115 bpm. She is not checking her blood pressure or her heart rate at home. Blood pressure here in the office 110/80 with a pulse of 115 bpm. She is already on metoprolol 100 mg daily in addition she was found to have a [id number]- VASc score of 2 for age and sex. She will need to be started on anticoagulant. She does have memory issues and she was seeing a provider at the memory clinic who decided to discontinue her digoxin due to the patient having a poor appetite. It is unclear why she was put on digoxin in the first place. She is no longer taking this medication due to having a poor appetite. We did discuss rate control and potentially starting her on flecainide 50 mg twice daily however the patient would like to hold off at this time because she is completely asymptomatic. She is going to monitor her heart rate at home using her daughter's Apple Watch and/or an O2 sensor in addition to taking her blood pressure. Her blood pressure is already on the lower side so increasing her metoprolol may not be beneficial to her. If she does start on flecainide we will repeat a stress test to rule out any ischemia. 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 We are going to repeat a Holter monitor for 48 hours to assess her atrial fibrillation burden as well as her average heart rate and make a decision on medication at that time. We did briefly discuss a cardioversion however because the patient is asymptomatic she does not want to have this done. We did discuss stroke risk and the importance of taking her anticoagulant we are going to start her on Xarelto 20 mg daily. 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 She has been doing well and is only on prednisone 2.5mg QOD and Cellcept 1g BID. Is undergoing evaluation for thymus lesion with plan for elective removal given location, size, and possible malignancy. She is having this done at [facility]. From pemphigus standpoint is doing great without any discomfort. Weight has stabilized and she is doing well. Maciel facies have resolved. Happy with how she is. Wants plan to come off of medication. On exam has no active lesions of pemphigus. Plan: - Thymoma evaluation as scheduled - No evidence of SCC today - No evidence of Pemphigus today - Stop Prednisone - Pull off CellCept 500 every couple of weeks - I reviewed labs which are fine - RTC 8 weeks Assessment & Plan (03/26/2016 11:35 PM EDT): Here for evaluation of her pemphigus vulgaris. Has been doing great, much better on the prednisone 60. Tolerating CellCept without any concerns. Feels well and is gaining weight again. She does report night sweats which is a new symptom for her. Wakes up at night with sheets wet. Also having some cramps. On exam she has well healed lesions in mouth, a couple of small ulcers left. - No head and neck, axillary, or inguinal adenopathy. - No hepatosplenomegaly. Plan: Pemphigus Vulgaris - Labs again today - Continue CellCept at 1g BID - Reduce prednisone to 40 x 2 weeks then 30 x 2 weeks - Dex rinse okay - Bactrim and Ranitidine ppx - Should get CXR for night sweats from PCP, I have no good explanation for this. TB test was negative before. RTC 1 month Greater than 50% of this 25 minutes visit spent in counseling and coordination of care. Assessment & Plan (02/13/2016 11:39 PM EDT): Sent here by Dr. Billy Watts for treatment and evaluation of her pemphigus vulgaris. Has had extensive evaluation with positive oral biopsy on 12/28 with DIF + pathology consistent with pemphigus vulgaris. Since that time has been treated with a combination of prednisone bursts (currently on 30mg daily) and oral dex rinse. Has lost weight although most recently has stabilized. No vaginal involvement, only oral, no skin. Nose may have been invovled earlier. Otherwise healthy. On exam she has multiple ulcerations on the gingiva and buccal mucosa of mouth. Nose uninvolved. Plan: Pemphigus Vulgaris - Lab monitoring today for baseline labs - Start CellCept 500 BID, increase to 1g BID at 2 weeks after labs - Dex rinse okay - Bactrim and Ranitidine ppx RTC 1 month Greater than 50% of this 45 minutes visit spent in counseling and coordination of care. Immunizations Immunization Administration Dates Next Due Influenza High-Dose Quadriva lent Preservative Free IM 09/11/2022 Influenza High-Dose Trivalen t Preservative Free IM 07/30/2019,07/20/2018,08/13/2016,2014 Influenza Quadrivalent Adjuv anted Preservative Free IM 10/12/2021 Influenza Quadrivalent w/ Preservative IM 07/20/2018 Influenza Trivalent Adjuvant ed Preservative free IM 07/29/2017 Zoster recombinant 01/07/2022 Family History Medical History Relation Comments Alzheimer's disease Father Coronary artery disease Father Pneumonia Father Hypertension Mother 1 Stroke Mother 1 Hypertension Mother 2 Stroke Mother 2 Relation Status Comments Father Mother 1 Other Mother 2 Social History Tobacco Use Types Packs/Day Years Used Date Smoking Tobacco: Never Smokeless Tobacco: Never Tobacco Cessation:Counseling Given: Not Answered Alcohol Use Standard Drinks/Week Comments Not Currently [...] uch as food, clothing, or medical care? No 12/11/2024 In the past 12 months have y ou been in a relationship with a person who hurts, threatens, or tries to control you? No 12/11/2024 Are you denied basic needs s uch as food, clothing, or medical care? No 12/11/2024 In the past 12 months have y ou been in a relationship with a person who hurts, threatens, or tries to control you? No 12/11/2024 Comments No Sex and Gender Information Value Date Recorded Sex Assigned at Female 04/17/2019 2:03 PM EDT Legal Sex Female 2:48 PM EDT Gender Identity Female 04/17/2019 2:03 PM EDT Sexual Orientation Not on file Last Filed Vital Signs Vital Sign Reading Time Taken Comments Blood Pressure 128/78 04/16/2025 8:56 AM EDT Pulse 56 04/16/2025 8:56 AM EDT Temperature 36.3 C (97.3 F) 08/23/2024 7:03 AM EST Respiratory Rate 18 12/11/2024 10:2 1 AM EST Oxygen Saturation 97% 04/16/2025 8:56 AM EDT Inhaled Oxygen Concentration - - Weight 64.8 kg (142 lb 12.8 oz) 04/16/2025 8:56 AM EDT Height 162.6 cm (5' 4.02 ) 04/16/2025 8:56 AM ED T Body Mass Index 24.5 04/16/2025 8:56 AM EDT Plan of Treatment Upcoming Encounters Date Type Department Care Team (Late st Contact Info) Description 10/25/2025 9:20 AM EST Office Visit [facility] [address] 3[address], [address] [place] [address] Nakul Castaneda MD [address] [place] [address] [email or web address] Health Maintenance Due Date Last Done Comments Adult Td,Tdap Booster 1950 PNEUMOCOCCAL VACCINES (50+ years) (1 of 2 - PCV) 1969 COLOGUARD 1995 COLONOSCOPY 1995 COLORECTAL CANCER SCREENING 1995 FIT TEST 1995 FOBT 1995 SIGMOIDOSCOPY 1995 VIRTUAL COLONOSCOPY 1995 DEPRESSION SCREENING 07/03/2021 07/03/2020 ZOSTER VACCINES (2 of 2) 03/04/2022 01/07/2022 LIPID PANEL 11/14/2023 11/14/2018, 10/19/2017 INFLUENZA VACCINE (#1) 2025 , 08/10/2023, 09/11/2022, Additional history exists RSV VACCINE (1 - 1-dose 75+ series) 2025 COVID-19 VACCINE (2024- season) 2025 10/22/2021, 02/21/2021, 01/28/2021 CREATININE LEVEL 12/10/2025 12/10/2024, 04/2024, 08/16/2024, Additional history exists HEPATITIS C SCREENING Completed 11/14/2018 , 08/12/2016, 02/05/2016 OSTEOPOROSIS SCREENING INITIAL (ONE-TIME) Completed 08/03/2019, 08/31/2017 SMOKING STATUS SCREENING (Once After 26 Yrs) Completed 04/16/2025 HEPATITIS A VACCINES Aged Out No long er eligible based on patient's age to complete this topic HIB VACCINES Aged Out No longer eligi ble based on patient's age to complete this topic MENINGOCOCCAL VACCINES (ACWY) Aged Out No longer eligible based on patient's age to complete this topic MENINGOCOCCAL VACCINES (B) Aged Out N o longer eligible based on patient's age to complete this topic Medical Devices Implanted Type Area Junk Dealer Device Identifier Shelf Expiration Date Model / Serial / Lot Sternal Wires Procedures Procedure Name Priority Date/Time Associated Diagnosis Comments BASIC METABOLIC PANEL (BMP) Routine 12/10/2024 10:40 AM EST Paroxysmal atrial fibrillation BD DXA AXIAL (SPINE) WITH HIP Routine 08/03/2019 10:17 AM EDT Age-related osteoporosis without current pathological fracture LIPID PANEL Routine 11/14/2018 9:20 AM EST Hyperlipidemia, unspecified hyperlipidemia type Screening examination for poliomyelitis HEPATITIS C ANTIBODY, QUALITATIVE Routine 11/14/2018 9:20 AM EST Hyperlipidemia, unspecified hyperlipidemia type Screening examination for poliomyelitis from Last 3 Months or Most Recently Relevant to Health Maintenance Results * Basic metabolic panel (12/10/2024 10:40 AM EST) SODIUM 145 133 - 146 mmol/L [facility] CHLORIDE 106 96 - 108 mmol/L [facility] POTASSIUM 4.0 3.3 - 5.1 mmol/L [facility] Comment:Specimen slightly he molyzed, result may be falsely elevated. CO2 26 21 - 35 mmol/L [facility] BUN 12 6 - 19 mg/dL [facility] CREATININE 0.80 0.5 - 1.5 mg/dL [facility] GLUCOSE 81 70 - 99 mg/dL [facility] CALCIUM 9.8 8.4 - 10.3 mg/dL [facility] EGFR 77 >59 mL/min/1.7 3m2 [facility] Comment:Estimated glomerular filtration rate calculated using the CKD-EPI refit equation. ANION GAP 17 10 - 20 mmol/L [facility] Blood 12/10/2024 10:4 0 AM EST 12/10/2024 10:42 AM EST us Nakul Castaneda MD LAB BLOOD BKR ORDERABLES Junie l Result Performing Organization Address City/State/[facility] Co de Phone Number [address] [address] * BD DXA AXIAL (SPINE) WITH HIP (08/03/2019 10:17 AM EDT) Anatomical Region Laterality Modality Bone Density Bone Density 08/03/2019 10:2 1 AM EDT Impressions 08/03/2019 10:33 AM EDT Osteopenia POS - [id number] Narrative 08/03/2019 10:33 AM EDT CLINICAL HISTORY: Age-related osteoporosis without current pathological fracture TECHNIQUE: DEXA Imaging of the lumbar spine and hips performed. COMPARISON: 08/31/2017 BONE DENSITY FINDINGS: Evaluation of the lumbar spine and hips was performed and felt to be technically adequate. Total bone mineral density in the L1-L4 vertebral bodies was calculated at 0.774 gm/cm2 with a T-score of -2.5 falling within the WHO classification of osteopenia. Z-score of -0.4.14.5% increase Total bone mineral density in the right hip was calculated at 0.801 gm/cm2 with a T-score of -1.2 falling within the WHO classification of osteopenia. Z-score of 0.3. 5.4% increase Total bone mineral density in the left hip was calculated at 0.811 gm/cm2 with a T-score of -1.1 falling within the WHO classification of osteopenia. Z-score of 0.4. 2.5% increase Procedure Note Luis Escalante MD - 08/03/2019 CLINICAL HISTORY: Age-related osteoporosis without current pathologicalfracture TECHNIQUE: DEXA Imaging of the lumbar spine and hips performed. COMPARISON: 08/31/2017 BONE DENSITY FINDINGS: Evaluation of the lumbar spine and hips was performed and felt to betechnically adequate. Total bone mineral density in the L1-L4 vertebral bodies was calculated at0.774 gm/cm2 with a T-score of -2.5 falling within the WHO classificationof osteopenia. Z-score of -0.4.14.5% increase Total bone mineral density in the right hip was calculated at 0.801 gm/bv9cnnf a T-score of -1.2 falling within the WHO classification ofosteopenia. Z-score of 0.3. 5.4% increase Total bone mineral density in the left hip was calculated at 0.811 gm/gh0xysp a T-score of -1.1 falling within the WHO classification ofosteopenia. Z-score of 0.4. 2.5% increase IMPRESSION: Osteopenia POS - [id number] us Sukhdev Logan MD IMG BD BONE DENSITY DEXA Fi nal Result * Hepatitis C antibody, qualitative (11/14/2018 9:20 AM EST) HCV Negative Negative [facility] Comment: This is a screening test and should be confirmed with molecular testing Blood 11/14/2018 9:20 AM EST 11/14/2018 9:26 AM EST us Cody Romano DO LAB BLOOD BKR ORDERABLES Final R esult [facility] [address] [place] [address] * (ABNORMAL) Lipid panel (11/14/2018 9:20 AM EST) HDL 40 mg/dL [facility] Comment: Interpretation <40 mg/dL: Low HDL cholesterol (major risk factor for CHD) Greater than or equal to 60 mg/dL: High HDL cholesterol ( negative risk factor for CHD) HDL - cholesterol is affected by a number of factors, e.g. smoking, excerise, hormones, sex and age. CHOLESTEROL 210 0 - 240 mg/dL [facility] TRIGLYCERIDES 270(H) 30 - 160 mg/dL [facility] LDL 116 50 - 129 mg/dL [facility] Comment: LDL levels in terms of risk for coronary heart disease: <100 mg/dL: Optimal 100-129 mg/dL: Near or above optimal 130-159 mg/dL: Borderline high 160-189 mg/dL: High >190 mg/dL: Very High CARDIAC RISK RATIO 5.3(H) 3.3 - 4.4 C [facility] Blood 11/14/2018 9:20 AM EST 11/14/2018 9:26 AM EST us Cody Romano DO LAB BLOOD BKR ORDERABLES Final R esult [facility] [address] [place], [place] [id number] from Last 3 Months or Most Recently Relevant to Health Maintenance Insurance [place] [id number] [facility] MEDICARE SUPPLEMENT MEDICARE PART A & B MEDICARE SUPPLEMENT MEDICARE PART A & B Member Subscriber Plan / Payer (Ef fective 2015-) Name:Brittany Johnston Member ID:[id number] Relation to Subscriber:Self Name:Preston Brittany Subscriber ID:[id number] Payer ID:[id number] Group ID:Not on file Type:Medicare Address: [employer] 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 Healthcare Proxy 03/18/2017 6:04 AM * Full Code (Presumed) (Latest Code Status on File) Date Activated Date Inactivated Comments 03/18/2017 10:52 AM 03/21/2017 3:05 PM Healthcare Agents on File Name Relationship Healthcare Agent Relationship Communication Marleni Marvin .Primary Health Care Agent (Proxy form on file) Care Teams Energy Trading Analyst Relationship Specialty Start Date End Date Cody Romano DO PCP - General Internal Medicine 01/08/16 Weston Ballesteros MD [email or web address] Thoracic Surgery 12/15/16 Neeraj Osuna MD, MPH [address] [place] [address] (work) [email or web address] Dermatology 03/03/17 Additional Source Comments The information contained in this document represents components of the legal health record. It is not the complete legal health record.[facility]
--- OUTSIDE RECORDS SUMMARY | 2025-10-01 20:07 | XMS_ITS | Encounter Summary ---
Author Organization [facility] Address [address] [place] [address] Phone Care Team Providers Care Polysomnography Technologist Name Role Phone Cody Romano Primary Care Provider [phone] Weston Ballesteros MD Unavailable Neeraj Osuna MD, MPH Unavailable [phone] Encounter Details Date Type Department Care Team (Late st Contact Info) Description 08/06/2017 Ancillary Orders [facility] [address] [place] [address] Sherri Mccain MD 22 [facility] [address] [place] [address] [email or web address] Visit for screening mammogram Social History Tobacco Use Types Packs/Day Years [...] Description 10/25/2025 9:20 AM EST Office Visit [facility] [address] [place] [address] 3rd Floor, [address] [place] [address] Nakul Castaneda MD [address] [place] [address] [email or web address] documented as of this encounter Results * BI MAMMOGRAM SCREENING WITH TOMOSYNTHESIS WITH CAD (BILATERAL) (08/31/2017 2:19 PM EST) Anatomical Region Laterality Modality Breast Left, Breast Right, Breast Bilateral Bila teral Mammography 09/01/2017 7:50 AM EST Impressions 09/01/2017 7:52 AM EST No mammographic evidence of malignancy. BI-RADS CATEGORY: 1 - Negative. DENSITY: There are scattered fibroglandular densities. POS - [id number] Narrative 09/01/2017 7:52 AM EST Standard digital full-field 2-D C view and two-plane tomographic imaging was performed and compared with multiple prior studies, most recently 11/03/2014, with utilization of computer-aided detection. The breasts are composed of scattered fibroglandular densities. The stromal markings are essentially unchanged in overall appearance and distribution. No dominant spiculated mass, suspicious clustered microcalcifications, or focal zone of pathologic skin thickening or retraction are noted to have arisen in the interim. Procedure Note Kun Minor MD - 09/01/2017 Standard digital full-field 2-D C view and two-plane tomographic imagingwas performed and compared with multiple prior studies, most [id number]/2015, with utilization of computer-aided detection. The breasts are composed of scattered fibroglandular densities. Thestromal markings are essentially unchanged in overall appearance anddistribution. No dominant spiculated mass, suspicious clusteredmicrocalcifications, or focal zone of pathologic skin thickening orretraction are noted to have arisen in the interim. IMPRESSION: No mammographic evidence of malignancy. BI-RADS CATEGORY: 1 - Negative. DENSITY: There are scattered fibroglandular densities. POS - [id number] Sherri Mccain MD IMG MG EXAMS Final Resu lt documented in this encounter Visit Diagnoses Diagnosis Visit for screening mammogram Visit for screening mammogram documented in this encounter Additional Health Concerns Infection Onset Date Last Indicated Resolved Time MRSA Comment:Import to add expiration date of 01/02/2022 per Infection Control as part of historical infection status reconciliation 09/26/2010 09/26/2010 01/03/20 22 1:35 AM EDT documented as of this encounter Care Teams Polysomnography Technologist Relationship Specialty Start Date End Date Cody Romano DO PCP - General Internal Medicine 01/08/16 Weston Ballesteros MD [email or web address] [email or web address] Surgery 12/15/16 Neeraj Osuna MD, MPH [address] [place] [address] [email or web address] Dermatology 03/03/17 documented as of this encounter Additional Source Comments The information contained in this document represents components of the legal health record. It is not the complete legal health record.[facility]
--- OUTSIDE RECORDS SUMMARY | 2025-10-01 20:07 | XMS_ITS | Encounter Summary ---
Author Organization [facility] Address [address] [address] [place] [address] Phone Care Team Providers Care High Lead Yarder Name Role Phone Cody Romano Primary Care Provider [phone] Weston Ballesteros MD Unavailable Neeraj Osuna MD, MPH Unavailable [phone] Encounter Details Date Type Department Care Team (Late st Contact Info) Description 05/25/2022 Procedure Pass [facility] [address] [place] [address] Social History Tobacco Use Types Packs/Day Years [...] Philip PA-C * Patient has serious difficulty walking [...] Description 10/25/2025 9:20 AM EST Office Visit [facility] [address] [place] [address] 3rd Floor, [address] [place] [address] Nakul Castaneda MD [address] [place] [id number] [email or web address] documented as of this encounter Visit Diagnoses Not on filedocumented in this encounter Additional Health Concerns Assessment Noted Time PHQ-2 Depression Total Score: 0 07/03/20 20 11:28 AM EDT documented as of this encounter Care Teams High Lead Yarder Relationship Specialty Start Date End Date Cody Romano DO PCP - General Internal Medicine 01/08/16 Weston Ballesteros MD [email or web address] Thoracic Surgery 12/15/16 Neeraj Osuna MD, MPH [address] [place] [address] [email or web address] Dermatology 03/03/17 documented as of this encounter Additional Source Comments The information contained in this document represents components of the legal health record. It is not the complete legal health record.[facility]
--- OUTSIDE RECORDS SUMMARY | 2025-10-01 20:07 | XMS_ITS | Encounter Summary ---
Author Organization [facility] Address [address] [place] [address] Phone Care Team Providers Care Package Maker Name Role Phone Cody Romano DO Primary Care Provider [phone] Weston Ballesteros MD Unavailable Neeraj Osuna MD, MPH Unavailable [phone] Encounter Details Date Type Department Care Team (Late st Contact Info) Description 08/06/2017 Ancillary Orders [facility] [address] [place] [address] Cody Romano DO [address] [facility] [place] [address] [email or web address] Osteoporosis, unspecified osteoporosis type, unspecified pathological fracture presence Social History Tobacco Use Types Packs/Day Years [...] Description 10/25/2025 9:20 AM EST Office Visit [facility] [address] 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 POS -[id number] Narrative 08/31/2017 4:15 PM EST This is a 67-year-old female who reports a perceived height loss of about 1 inch. She has a history of long-term steroid use. No hormone therapy or calcium supplementation.. Comparison is made to prior studies from 10/08/2004 through 04/12/2014. Evaluation of the lumbar spine and hips was performed and felt to be technically adequate. Total bone mineral density in the L1-L4 vertebral bodies was calculated at 0.675 gm/cm2 with a T score of -3.4. This falls within the WHO classification of osteoporosis. This represents a -14.3% decrease in BMD since 2013. Total bone mineral density in the right proximal femur was calculated at 0.759 gm/cm2 with a T-score of -1.5 falling within the WHO classification of osteopenia. This represents a -18.2% decrease in BMD since 2013. Total bone mineral density in the left proximal femur was calculated at 0.792 gm/cm2 with a T-score of -1.2 falling within the WHO classification of osteopenia. This represents a -13.9% decrease BMD since 2013. Procedure Note Nakul Salazar MD - 08/31/2017 This is a 67-year-old female who reports a perceived height lossof about 1 inch. She has a history of long-term steroid use. No hormonetherapy or calcium supplementation.. Comparison is made to prior studies from 10/08/2004 through 04/12/2014. Evaluation of the lumbar spine and hips was performed and felt to betechnically adequate. Total bone mineral density in the L1-L4 vertebral bodies was calculated at0.675 gm/cm2 with a T score of -3.4. This falls within the WHOclassification of osteoporosis. This represents a -14.3% decrease in BMD since 2013. Total bone mineral density in the right proximal femur was calculated at0.759 gm/cm2 with a T-score of -1.5 falling within the WHO classificationof osteopenia. This represents a -18.2% decrease in BMD since 2013. Total bone mineral density in the left proximal femur was calculated at0.792 gm/cm2 with a T-score of -1.2 falling within the WHO classificationof osteopenia. This represents a -13.9% decrease BMD since 2013. IMPRESSION: Jb osteoporosis now in the lumbar spine and osteopenia in both hipswith significant decrease in BMD at all three sites in the last threeyears. POS -[id number] us Cody Romano DO IMG BD BONE DENSITY DEXA Final R esult documented in this encounter Visit Diagnoses Diagnosis Osteoporosis, unspecified osteoporosis type, unspecified pathological fracture presence Osteoporosis, unspecified osteoporosis type, unspecified pathological fracture presence documented in this encounter Additional Health Concerns Infection Onset Date Last Indicated Resolved Time MRSA Comment:Import to add expiration date of 01/02/2022 per Infection Control as part of historical infection status reconciliation 09/26/2010 09/26/2010 01/03/20 22 1:35 AM EDT documented as of this encounter Care Teams Package Maker Relationship Specialty Start Date End Date Cody Romano DO PCP - General Internal Medicine 01/08/16 Weston Ballesteros MD [email or web address] Thoracic Surgery 12/15/16 Neeraj Osuna MD, MPH [address] [place] [address] [email or web address] Dermatology 03/03/17 documented as of this encounter Additional Source Comments The information contained in this document represents components of the legal health record. It is not the complete legal health record.[facility]
--- OUTSIDE RECORDS SUMMARY | 2025-10-01 20:07 | XMS_ITS | Encounter Summary ---
Author Organization [facility] Address [address] [place] [address] Phone Care Team Providers Care Insurance Policy Issue Clerk Name Role Phone Cody Romano Pacheco [employer] Primary Care Provider [phone] Weston Ballesteros MD Unavailable Neeraj Osuna MD, MPH Unavailable [phone] Encounter Details Date Type Department Care Team (Late st Contact Info) Description 12/05/2024 Procedure Pass [facility] [address] [place], [place] [id number] Social History Tobacco Use Types Packs/Day Years [...] Description 10/25/2025 9:20 AM EST Office Visit [facility] [address] [facility] 3rd Floor, [address] [place] [address] Nakul Castaneda MD [address] [place] [address] [email or web address] documented as of this encounter Visit Diagnoses Not on filedocumented in this encounter Additional Health Concerns Assessment Noted Time PHQ-2 Depression Total Score: 0 07/03/20 20 11:28 AM EDT documented as of this encounter Care Teams Insurance Policy Issue Clerk Relationship Specialty Start Date End Date Cody Romano DO [email or web address] PCP - General Internal Medicine 01/08/16 Weston Ballesteros MD [email or web address] [email or web address] Surgery 12/15/16 Neeraj Osuna MD, MPH [address] [place] [address] [email or web address] Dermatology 03/03/17 documented as of this encounter Additional Source Comments The information contained in this document represents components of the legal health record. It is not the complete legal health record.[facility]
--- OUTSIDE RECORDS SUMMARY | 2025-10-01 20:08 | XMS_ITS | Encounter Summary ---
Author Organization [facility] Address [address] [facility] [address] [place] [address] Phone Care Team Providers Care Song Writer Name Role Phone Cody Romano DO Primary Care Provider [phone] Weston Ballesteros MD Unavailable Neeraj Osuna MD, MPH Unavailable [phone] Encounter Details Date Type Department Care Team (Late st Contact Info) Description 05/24/2022 Transcribe Orders Virtual Department [address] [place] [address] Cody Romano DO [address] [facility] [address] [place], [place] [id number] [email or web address] Breast screening (Primary Dx) Social History Tobacco Use Types [...] Description 10/25/2025 9:20 AM EST Office Visit [facility] [address] [facility] 3rd Floor, [address] [place] [address] Nakul Castaneda MD [address] [place] [id number] [email or web address] documented as of this encounter Results * BI MAMMOGRAM SCREENING WITH TOMOSYNTHESIS WITH CAD (BILATERAL) (08/05/2022 10:59 AM EDT) Anatomical Region Laterality Modality Breast Left, Breast Right, Breast Bilateral Bila teral Mammography 08/06/2022 10:0 2 AM EDT Impressions 08/06/2022 10:05 AM EDT No findings suspicious for malignancy are identified. In the absence of a worrisome palpable abnormality, annual screening mammography is recommended. BI-RADS CATEGORY: 1 - Negative. DENSITY: There are scattered fibroglandular densities. Narrative 08/06/2022 10:05 AM EDT COMPARISON: 09/12/2018 through 12/27/2003 Bilateral 3-D tomosynthesis with 2-D reconstructions in the CC and MLO projection. Computer-aided detection system was utilized. No new mass, asymmetry, architectural distortion or suspicious calcifications have become apparent on either side. Procedure Note Nakul Salazar MD - 08/06/2022 COMPARISON: 09/12/2018 through 12/27/2003 Bilateral 3-D tomosynthesis with 2-D reconstructions in the CC and MLOprojection. Computer-aided detection system was utilized. No new mass, asymmetry, architectural distortion or suspiciouscalcifications have become apparent on either side. IMPRESSION: No findings suspicious for malignancy are identified. In the absence of aworrisome palpable abnormality, annual screening mammography isrecommended. BI-RADS CATEGORY: 1 - Negative. DENSITY: There are scattered fibroglandular densities. us Cody Romano DO IMG MG EXAMS Final Result documented in this encounter Visit Diagnoses Diagnosis Breast screening- Primary Breast screening, unspecified Breast screening Breast screening, unspecified documented in this encounter Additional Health Concerns Assessment Noted Time PHQ-2 Depression Total Score: 0 07/03/20 20 11:28 AM EDT documented as of this encounter Care Teams Song Writer Relationship Specialty Start Date End Date Cody Romano DO PCP - General Internal Medicine 01/08/16 Weston Ballesteros MD [email or web address] Thoracic Surgery 12/15/16 Neeraj Osuna MD, MPH [address] [place] [address] [email or web address] Dermatology 03/03/17 documented as of this encounter Additional Source Comments The information contained in this document represents components of the legal health record. It is not the complete legal health record.[facility]
--- OUTSIDE RECORDS SUMMARY | 2025-10-01 20:08 | XMS_ITS | Encounter Summary ---
Author Organization [facility] Address [address] [facility] [address] [place] [address] Phone Care Team Providers Care Oil Laboratory Analyst Name Role Phone Cody Romano DO Primary Care Provider [phone] Weston Ballesteros MD Unavailable Neeraj Osuna MD, MPH Unavailable [phone] Encounter Details Date Type Department Care Team (Late st Contact Info) Description 11/14/2018 Transcribe Orders [address] [place] [address] Cody Romano DO [address] [facility] [address] [place], [place] [id number] [email or web address] Hyperlipidemia, unspecified hyperlipidemia type (Primary Dx); Screening examination for poliomyelitis Social History Tobacco Use Types Packs/Day Years [...] Description 10/25/2025 9:20 AM EST Office Visit [facility] [address] [facility] 3rd Floor, [address] [place] [address] Nakul Castaneda MD [address] [place] [address] [email or web address] documented as of this encounter Results * Hepatitis C antibody, qualitative (11/14/2018 9:20 AM EST) HCV Negative Negative [facility] Comment: This is a screening test and should be confirmed with molecular testing Blood 11/14/2018 9:20 AM EST 11/14/2018 9:26 AM EST us Cody Romano DO LAB BLOOD BKR ORDERABLES Final R esult [facility] [address] [place] [address] * (ABNORMAL) Comprehensive metabolic panel (11/14/2018 9:20 AM EST) SODIUM 143 133 - 146 mmol/L [facility] POTASSIUM 4.6 3.3 - 5.1 mmol/L [facility] CHLORIDE 103 96 - 108 mmol/L [facility] CO2 29 21 - 35 mmol/L [facility] BUN 18 6 - 19 mg/dL [facility] CREATININE 0.50 0.5 - 1.5 mg/dL [facility] GLUCOSE 103(H) 70 - 99 mg/dL [facility] ALBUMIN 4.3 3.9 - 4.8 g/dL [facility] TOTAL PROTEIN 6.9 6.5 - 8.0 g/dL [facility] CALCIUM 9.5 8.4 - 10.3 mg/dL [facility] ALKALINE PHOSPHATASE 75 39 - 117 U/L [facility] TOTAL BILIRUBIN 1.3(H) 0.0 - 1.2 mg/dL [facility] AST 22 0 - 37 U/L [facility] ALT 18 0 - 40 U/L [facility] GLOBULIN 2.6 1 - 4.8 g/dL [facility] EGFR 99 >59 mL/min/1.7 3m2 [facility] Comment:If patient is black, multiply result by 1.159. Estimated glomerular filtration rate calculated using the CKD-EPI equation. ANION GAP 16 10 - 20 mmol/L [facility] Blood 11/14/2018 9:20 AM EST 11/14/2018 9:26 AM EST us Cody Romano DO LAB BLOOD BKR ORDERABLES Final R esult [facility] [address] [place] [address] * (ABNORMAL) Lipid panel (11/14/2018 9:20 AM EST) HDL 40 mg/dL [facility] Comment: Interpretation <40 mg/dL: Low HDL cholesterol (major risk factor for CHD) Greater than or equal to 60 mg/dL: High HDL cholesterol ( negative risk factor for CHD) HDL - cholesterol is affected by a number of factors, e.g. smoking, excerise, hormones, sex and age. CHOLESTEROL 210 0 - 240 mg/dL [facility] TRIGLYCERIDES 270(H) 30 - 160 mg/dL [facility] LDL 116 50 - 129 mg/dL [facility] Comment: LDL levels in terms of risk for coronary heart disease: <100 mg/dL: Optimal 100-129 mg/dL: Near or above optimal 130-159 mg/dL: Borderline high 160-189 mg/dL: High >190 mg/dL: Very High CARDIAC RISK RATIO 5.3(H) 3.3 - 4.4 C [facility] Blood 11/14/2018 9:20 AM EST 11/14/2018 9:26 AM EST us Cody Romano DO LAB BLOOD BKR ORDERABLES Final R esult Performing Organization Address City/State/[facility] Co de Phone Number [address] [address] documented in this encounter Visit Diagnoses Diagnosis Hyperlipidemia, unspecified hyperlipidemia type- Primary Screening examination for poliomyelitis documented in this encounter Additional Health Concerns Infection Onset Date Last Indicated Resolved Time MRSA Comment:Import to add expiration date of 01/02/2022 per Infection Control as part of historical infection status reconciliation 09/26/2010 09/26/2010 01/03/20 22 1:35 AM EDT documented as of this encounter Care Teams Oil Laboratory Analyst Relationship Specialty Start Date End Date Cody Romano DO [email or web address] PCP - General Internal Medicine 01/08/16 Weston Ballesteros MD [email or web address] Surgery 12/15/16 Neeraj Osuna MD, MPH [address] [place] [address] [email or web address] [email or web address] 03/03/17 documented as of this encounter Additional Source Comments The information contained in this document represents components of the legal health record. It is not the complete legal health record.[facility]
--- OUTSIDE RECORDS SUMMARY | 2025-10-01 20:08 | XMS_ITS | Encounter Summary ---
Author Organization [facility] Address [address] [place] [address] Phone Care Team Providers Care Cotton Grader Name Role Phone Cody Romano DO Primary Care Provider [phone] Weston Ballesteros MD Unavailable Neeraj Osuna MD, MPH Unavailable [phone] Encounter Details Date Type Department Care Team (Late st Contact Info) Description 05/25/2023 Transcribe Orders Virtual Department [address] [place] [address] Cody Romano DO [address] [place], [place] [id number] [email or web address] Breast screening (Primary Dx) Social History Tobacco [...] with a working camera? Not on file Comments No Sex and Gender Information Value [...] Description 10/25/2025 9:20 AM EST Office Visit [facility] [address] 3rd Floor, [address] [place] [address] Nakul Castaneda MD [address] [place] [phone] [email or web address] documented as of this encounter Results * BI MAMMOGRAM SCREENING WITH TOMOSYNTHESIS WITH CAD (BILATERAL) (08/08/2023 10:06 AM EDT) Anatomical Region Laterality Modality Breast Left, Breast Right, Breast Bilateral Bila teral Mammography 08/10/2023 5:03 PM EDT Impressions 08/10/2023 5:05 PM EDT No mammographic evidence of malignancy in either breast. Annual screening mammography is recommended. BI-RADS CATEGORY: 1 - Negative. The patient will be notified of the results and recommendations. Narrative 08/10/2023 5:05 PM EDT BI MAMMOGRAM SCREENING WITH TOMOSYNTHESIS WITH CAD (BILATERAL) Additional patient information: Screening. COMPARISON: Comparison is made with relevant prior imaging. Breast composition: There are scattered fibroglandular densities. FINDINGS: There has been no change in the mammographic findings since previous examination. No abnormal masses, suspicious calcifications, or other significant findings are identified mammographically in either breast. Procedure Note Mingo eBck MD - 08/10/2023 BI MAMMOGRAM SCREENING WITH TOMOSYNTHESIS WITH CAD (BILATERAL) Additional patient information: Screening. COMPARISON: Comparison is made with relevant prior imaging. Breast composition: There are scattered fibroglandular densities. FINDINGS: There has been no change in the mammographic findings since previousexamination. No abnormal masses, suspicious calcifications, or other significantfindings are identified mammographically in either breast. IMPRESSION: No mammographic evidence of malignancy in either breast. Annual screening mammography is recommended. BI-RADS CATEGORY: 1 - Negative. The patient will be notified of the results and recommendations. Cody Romano DO IMG MG EXAMS Final Result documented in this encounter Visit Diagnoses Diagnosis Breast screening- Primary Breast screening, unspecified Breast screening Breast screening, unspecified documented in this encounter Additional Health Concerns Assessment Noted Time PHQ-2 Depression Total Score: 0 07/03/20 20 11:28 AM EDT documented as of this encounter Care Teams Cotton Grader Relationship Specialty Start Date End Date Cody Romano DO PCP - General Internal Medicine 01/08/16 Weston Ballesteros MD [email or web address] Surgery 12/15/16 Neeraj Osuna MD, MPH [address] [place] [address] [email or web address] 03/03/17 documented as of this encounter Additional Source Comments The information contained in this document represents components of the legal health record. It is not the complete legal health record.[facility]
--- OUTSIDE RECORDS SUMMARY | 2025-10-01 20:08 | XMS_ITS | Encounter Summary ---
Author Organization [facility] Address [address] [place] [address] Phone Care Team Providers Care Legal Entity Controller Name Role Phone Cody Romano Primary Care Provider [phone] Weston Ballesteros MD Unavailable Neeraj Osuna MD, MPH Unavailable [phone] Encounter Details Date Type Department Care Team (Late st Contact Info) Description 07/27/2018 Procedure Pass [facility] [address] [place] [address] Social History Tobacco Use Types Packs/Day Years [...] Description 10/25/2025 9:20 AM EST Office Visit [facility] [address], [address] [place] [address] Nakul Castaneda MD [address] [place] [phone] [email or web address] documented as of this encounter Visit Diagnoses Not on filedocumented in this encounter Additional Health Concerns Infection Onset Date Last Indicated Resolved Time MRSA Comment:Import to add expiration date of 01/02/2022 per Infection Control as part of historical infection status reconciliation 09/26/2010 09/26/2010 01/03/20 22 1:35 AM EDT Assessment Noted Time PHQ-2 Depression Total Score: 0 01/26/20 11:57 AM EDT documented as of this encounter Care Teams Legal Entity Controller Relationship Specialty Start Date End Date Cody Romano DO PCP - General Internal Medicine 01/08/16 Weston Ballesteros MD [email or web address] Surgery 12/15/16 Neeraj Osuna MD, MPH [address] [place] [address] [email or web address] [email or web address] 03/03/17 documented as of this encounter Additional Source Comments The information contained in this document represents components of the legal health record. It is not the complete legal health record.[facility]
--- OUTSIDE RECORDS SUMMARY | 2025-10-01 20:08 | XMS_ITS | Encounter Summary ---
Author Organization [facility] Address [address] [place] [address] Phone Care Team Providers Care Textile Chemist Name Role Phone Cody Romano Primary Care Provider [phone] Weston Ballesteros MD Unavailable Neeraj Osuna MD, MPH Unavailable [phone] Encounter Details Date Type Department Care Team (Latest Contact Info) Description 06/04/2022 Ancillary Orders [facility] [address] [facility] [address], [address] [place] [address] Gordo Delaney MD [address] [place] [phone] [email or web address] Paroxysmal atrial fibrillation Social History Tobacco Use Types Packs/Day Years [...] No 03/21/2017 10:48 AM EDKeren Philip PA-C documented as of this encounter Mental Status * Patient has serious difficulty concentrating, remembering, or making decisions due to physical, mental, or emotional condition Answer Entry Date Author No 03/21/2017 10:48 AM EDKeren Philip PA-C documented in this encounter Plan of Treatment Upcoming Encounters Date Type Department Care Team (Late st Contact Info) Description 10/25/2025 9:20 AM EST Office Visit [facility] [address], [address] [place] [address] Nakul Castaneda MD [address] [place] [address] [email or web address] Scheduled Orders Name Type Priority Associated Diagnoses Orde r Schedule MCT (Mobile Cardiac Telemetry) Cardiac Monitors Routine Paroxysmal atrial fibrillation Expected: 05/25/2022, Expires: 05/25/2023 documented as of this encounter Visit Diagnoses Diagnosis Paroxysmal atrial fibrillation Atrial fibrillation documented in this encounter Additional Health Concerns Assessment Noted Time PHQ-2 Depression Total Score: 0 07/03/20 20 11:28 AM EDT documented as of this encounter Care Teams Textile Chemist Relationship Specialty Start Date End Date Cody Romano DO [email or web address] PCP - General Internal Medicine 01/08/16 Weston Ballesteros MD [email or web address] Thoracic Surgery 12/15/16 Neeraj Osuna MD, MPH [address] [place] [address] [email or web address] [email or web address] 03/03/17 documented as of this encounter Additional Source Comments The information contained in this document represents components of the legal health record. It is not the complete legal health record.[facility]
--- OUTSIDE RECORDS SUMMARY | 2025-10-01 20:08 | XMS_ITS | Data Portability ---
Author Organization [facility], Telehealth Patient Home Address [address] [facility] [place] [address] Assessment Encounter Date Assessment Date Assessment LastModified by Organization Details LastModified Time 10/05/2022 10/05/2022 [id number] [place] [id number] (CREW TRAINER) [facility] MODERATE MUST MEET 2 OUT OF 3 [...] EACH ELEMENT THAT IS COVERED Not available 10/05/2022 15:16:44 10/01/2025 10/01/2025 [id number] [place] [id number] (CREW TRAINER) [facility] MODERATE MUST MEET 2 OUT OF 3 [...] D, 25-hydrox y, total, serum 2024 025 [facility], [address] [place] [address], [address], 10/01/2025 16:10:42 vitamin B12, serum 2024 025 [facility], [address] [place] [address], [address], 10/01/2025 16:10:41 TSH, serum or plasma 2024 025 [facility], [address] [place] [address], [address], 10/01/2025 16:10:42 CBC 2024 025 [facility], [address] [place] [address], [address], 10/01/2025 16:10:42 CMP, serum or plasma 2024 025 [facility], [address] [place] [address], [address], 10/01/2025 16:10:41 TSH + free T4, serum 2022 023 [facility], [address] [place] [address], [address], 05/30/2023 11:30:42 vitamin B12 + folate, serum or blood 2022 023 [facility], [address] [place] [address], [address], 05/30/2023 11:30:43 ESR (erythroc yte sedimenta tion rate), blood 2022 023 [facility], [address] [place] [address], [address], 05/30/2023 11:30:42 CBC 2022 023 [facility], [address] [place] [address], [address], 05/30/2023 11:30:43 ferritin, serum or plasma 2022 023 [facility], [address] [place] [address], [address], 06/01/2023 12:22:20 folate, serum 2022 023 [facility], [address] [place] [address], [address], 05/30/2023 11:30:42 iron + total iron-bind ing capacity (TIBC), serum 2022 023 [facility], [address] [place] [address], [address], 05/30/2023 11:30:43 retic count, blood 2022 023 [facility], [address] [place] [address], [address], 05/30/2023 11:30:43 vitamin B12, serum 2022 023 [facility], [address] [place] [address], [address], 05/30/2023 11:30:42 vitamin D, 25-hydrox y, total, serum 2022 023 [facility], [address] [place] [address], [address], 05/30/2023 11:30:42 CMP, serum or plasma 2022 023 [facility], [address] [place] [address], [place], [address], 05/30/2023 11:30:43 CBC w/ auto diff 2022 023 [facility], [address] [place] [address], [place], [address], 05/30/2023 11:30:42 lipid panel, blood 2022 023 [facility], [address] [place] [address], [place], [address], 05/30/2023 11:30:42 Referral dermatolo gist referral 2021 022 rustshiv Crisostomo MD, a [address], [place], [address], 11/03/2022 08:15:45 Procedures None recorded. Surgeries None recorded. Imaging XR, chest, 2 view 2024 025 [facility], [address] [facility], [place], [address], 10/01/2025 16:10:43 US, chest wall - on the chest wall; sternal area; NOT related to her breast, possibly a chest wall lipoma 2022 023 [email or web address] [facility], [address] [place], [address], 04/15/2023 08:16:10 Medication Orders None recorded. Patient TargetsNo targets recorded. 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 [facility] [address] , [place], [address], 10/25/2022 13:45:46 04/22/20 23 04/22/2023 US, chest wall No observ ation record ed. [facility] [address] [place], [address], 05/30/2023 11:02:07 08/10/20 23 08/08/2023 MAMMO , scree geena, digit al, bilat eral No observ ation record ed. [facility] [address] [facility], [place], [address], 08/11/2023 07:53:08 08/12/2008/11/2023 elect romyo gram + nerve condu ction study No observ ation record ed. [email or web address] [facility] [address] [place], [address], 08/12/2023 16:58:05 09/11/20 24 09/10/2024 MAMMO , scree geena, digit al, bilat eral No observ ation record ed. [email or web address] [facility] [address] [facility], [place], [address], 09/11/2024 14:59:36 10/27/1910/13/2024 madina r monit or No observ ation record ed. [email or web address] [facility] - [address], [place], [address], 10/29/2024 08:07:56 11/20/1911/16/2024 cardi ac stres s test No observ ation record ed. [email or web address] [facility] [address] [place] [address], [place], [address], 11/20/2024 08:34:03 Result Notes None recorded. 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 8 11:22:34 Squamous cell carcinom a 459060876 Active 2017 Not Available [facility] 3 11:58:10 Fracture of tibial plateau 816129544 Active 2018 Not Available [facility] 3 11:58:10 Alopecia 73040724 Active 2018 Not Available [facility] 3 11:58:11 Rosacea 144621453 Active 2018 Not Available [facility] 3 11:58:10 Herpes zoster with complica tion 36176827 Active 2019 Not Available [facility] 3 11:58:10 COVID-19 733084389 Active 2019 Not Available [facility] 3 11:58:11 Rapid atrial fibrilla tion 881082830 Active 2021 Not Available [facility] 3 11:58:10 Paroxysm al atrial fibrilla tion 760089833 Active 2021 Not Available [facility] 3 11:58:10 Atrial fibrilla tion 82177547 Active 2021 Not Available [facility] 3 11:58:10 Actinic keratosi s 422544710 Active 2021 Not Available [facility] 3 11:58:10 Bilatera l earache 915985540 Active 2021 Not Available [facility] 3 11:58:10 Lipoma of skin 679823729 Active 2022 Not Available [facility] 3 11:58:10 Memory impairme nt 156174725 Active 2022 Not Available [facility] 3 11:58:10 Vitamin D deficien cy 10872894 Active 2022 Not Available [facility] 3 11:58:10 Alzheime r's disease 25193580 Active 2023 APO E4/APOE4 E4 E4 genotype Cody Pennington DO [address] [place] [address], [address], [facility] 4 10:42:04 Persiste nt cough 613270460 Active 2024 Cody Pennington DO [address] [place], [address], [facility] 5 16:04:24 Problem Notes None recorded. Medical Equipment None Reported. Allergies Allergen ID Allergen Name Allergen Category Reaction Reaction Severity Criticality Documentation Date Start Date Code Code System Note Provider Name and Address Organization Details Recorded Time 03866 levofloxa tristen medicatio n Not available Not available Not available 10/01/20252018 18751 RxNorm Not Available [facility]el[facility] - External Data Service - prod 5 03:14:04 1765 Levaquin medicatio n Not available Not available Not available 04/21/2018 84261 2 [facility]Norm [facility] 8 15:25:12 Medications [...] Available Not Available Vitals Date Recorded Body height Body mass index (BMI) Body weight Heart rate Oxygen saturation Systolic And Diastolic Provider Name and Address Organization Details Last Updated DateTime 3 163.83 cm 24.5 kg/m2 59003.8 9 g 76 /min 97 % 140/80 mm[Hg] Adelaida Ravi [facility] 3 10:51:59 Date Recorded Body height Body mass index (BMI) Body weight Heart rate Oxygen saturation Systolic And Diastolic Provider Name and Address Organization Details Last Updated DateTime 3 163.83 cm 24.5 kg/m2 90883.8 9 g 75 /min 97.99 % 120/80 mm[Hg] Cody Pennington, DO [address] [place], [address] [place] [address] Internal [facility] 3 10:28:03 Date Recorded Body height Body mass index (BMI) Body weight Heart rate Oxygen saturation Systolic And Diastolic Provider Name and Address Organization Details Last Updated DateTime 4 162.56 cm 23.9 kg/m2 75452.3 4 g 69 /min 98 % 110/80 mm[Hg] Adelaida Trav [facility] 4 10:25:17 Date Recorded Body weight Body mass index (BMI) Body height Heart rate Oxygen saturation Systolic And Diastolic Provider Name and Address Organization Details Last Updated DateTime 5 24597.3 6 g 25.2 kg/m2 162.56 cm 73 /min 97 % 136/72 mm[Hg] Leeanna Fausto [facility] 5 15:41:30 Date Recorded Body height Body mass index (BMI) Body weight Oxygen saturation Heart rate Systolic And Diastolic Provider Name and Address Organization Details Last Updated DateTime 2 163.83 cm 24.6 kg/m2 72898.4 1 g 100 % 78 /min 160/98 mm[Hg] Rosa Julian [facility] 2 14:28:38 Social History Question Answer Notes LastModified by Organizat ion Details LastModified Time Tobacco Smoking Status Never Smoker Not Available [facility] 08/19/2020 03:36:24 What Was The Date Of Your Most Recent Tobacco Screening? 10/01/2025 [email or web address] Information not available 10/01/2025 Sex: Unknown Functional Status Question Answer Note LastModified by Organization D etails LastModified Time Do you or have you ever used any other forms of tobacco or nicotine? No Information not available 04/13/2023 Mental Status None recorded. Family History Nothing Reported. Medical History No medical history recorded. Gynecological HistoryNo gynecological history recorded. Obstetrics History GPAL:G 0 P 0 0 0 0 Immunizations Vaccine Type Date Status Note Provider Nam e and Address Organization Details Recorded Time Influenza, split virus, quadrivalent, preservative 8 completed Not Available [facility] 11/26/2022 11:30:14 influenza, unspecified formulation 2 completed Not Available [facility] 11/26/2022 11:30:14 influenza, unspecified formulation 4 completed Aliyah Caceres [facility] 07/02/2024 08:06:30 Influenza, split virus, quadrivalent, preservative 9 completed Not Available [facility] 11/26/2022 11:30:14 Past Encounters Encounter ID Performer Location Encounter Start Date Encounter Closed Date Diagnosis/Indication Diagnosis SNOMED-CT Code Diagnosis ICD10 Code Diagnosis IMO Codes Diagnosis Note [id number] Cody Pennington [facility] [address] [facility] [address] 04/24/2018 10:57:40 04/24/2018 12:22:33 Pemphigus 07103630 L10.9 is under better control and meds seem to be working as lesions in mouth are smaller will cont to [facility] for weekly treatment Atrial septal defect 701 52153 Q21.1 quiet and without symptoms Hyperlipidemia 64110925 E78.5 we nadia be needing to check levels in a few months1 Acevedo's n euroma of right foot 5953001107 49288 G57.61 [id number] Cody Pennington [facility] Internal 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 followed by [place] going to [facility] for this and also seeing another specialist fro the [place] Pemphigus 85831287 L10.9 is under better control and meds seem to be working as lesions in mouth are smaller will cont to [facility] for weekly treatment and is doing so much better Low back pain 416854652 M54.5 currently being treated by MANDY [id number] Cody Pennington [facility] [address] [facility] [address] 12/06/2018 13:52:17 12/06/2018 15:24:46 Fever 076929781 R50.9 Fracture of tibia 636940 02 S82.201A [id number] Cody Pennington [facility] [address] [facility] [address] [address] 12/13/2018 11:34:51 12/13/2018 12:02:58 Acute bronchitis 78637195 J20.9 Fracture of tibia 009192 02 S82.201A has correct brace, doing well. weight bearing w/brace without pain [id number] Cody Pennington [facility] [address] [facility] [address] [address] 12/15/2018 10:57:38 12/15/2018 13:36:47 Acute bronchitis 87806905 J20.9 Persistent cough 6529505 02 R05 Thymoma 504446489 [place] [id number] Cody Chiki Pennington [facility] [address] [facility] [address] 12/19/2018 14:48:18 12/19/2018 15:24:27 Acute bronchitis 28830305 J20.9 Acute sinusitis 81816754 J01.90 [id number] Cody Pennington [facility] [address] [facility] [address] 02/21/2019 15:20:24 02/21/2019 16:27:52 Adult health examination 649932404 Z00.00 will set her up for cologuard as she doesnt want colonoscop y Active or passive immunization 584053287 Z23 Fracture o f tibial plateau 775938343 S82.101A did well with spec brace for 8 weeks walking well now careful when on knees will use diclofenac on a prn basis [id number] Cody Pennington [facility] [address] [facility] [address] 04/23/2019 10:39:18 04/23/2019 16:32:29 Benign paroxysmal positional vertigo 442301571 H81.10 has happened this once and no other times w/u in ER was neg discussed how to avoid positional episodes Idiopathic scoliosis of thoracic and lumbar spine 388441881 M41.24 deforms her rib cage to slight degree on the left side makes it appear more prominent [id number] Cody Pennington DO [facility] [address] [facility] [address],[place] [address] 07/20/2019 11:06:35 07/20/2019 12:35:43 Atrial septal defect 26753836 Q21.1 quiet and without symptoms Pemphigus 40967598 L10.9 is under better control and meds seem to be working as lesions in mouth are smaller will cont to [facility] for weekly treatment and is doing so much better Rosaninoskaa 038012478 L71.9 told her to get the opinion of her derm in [place] Osteoporosis 39620729 M8 1.0 await bone density results [id number] Cody Pennington DO [facility] [address] [facility] [address] 04/07/2020 14:51:09 04/07/2020 16:15:22 Atrial septal defect 45777879 Q21.1 quiet and without symptoms Hyperlipidemia 71848151 E78.5 we nadia be needing to check levels in a few months1 Aphthous u lcer of mouth 299639637 K12.0 unsure what this is but appears viral etc she will be seen bu her doctor in [place] in 2 weeks [id number] Cody Pennington DO [facility] [address] [facility] [address] [address] 06/20/2020 09:22:51 06/20/2020 10:19:00 Atrial septal defect 55099513 Q21.1 quiet and without symptoms and has been stable with her digoxin Pemphigus 14747998 L10.9 has had a recent flare up meds seem to be working as lesions in mouth are smaller will cont to go to [place] for weekly treatment Hyperlipidemia 78669737 E78.5 we nadia be needing to check levels in a few months1 Spinal cor d compression 51433778 G95.20 she relates it seems to be stable [id number] Cody Pennington DO [facility] Medicine [address] [facility] [address],[place] [address] 07/14/2020 11:42:04 07/14/2020 12:17:52 Herpes zoster 6011517 B02.9 will treat with valtrex [id number] Cody Pennington [facility] [address] [facility] [address] [address] 08/18/2020 14:52:00 08/18/2020 15:44:19 Herpes zoster 1301785 B02.9 few scattered papules left, rest of rash is gone Post-herpe tic neuritis 877330046 B02.29 on the right regimen for pain control will fu in a few months to taper her off of gabapentin 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 increased her pred by her doctor [id number] Cody Pennington [facility] [address] [facility] [address] 10/21/2020 10:05:49 10/21/2020 15:06:31 Post-herpetic neuritis 183783278 B02.29 will fu with 2 mo needs adequate pain control as she is still having neuralgia from shingles infection Herpes zos ter with complication 33722864 B02.8 will keep on current pain/nerve medication for now given severe pain level [id number] Cody Pennington [facility] [address] [facility] [address] 11/11/2020 11:22:14 11/11/2020 14:58:01 Memory impairment 405139166 R41.3 will fu with patient after lab work and CT results come in trying to r/o pathologic al process for memory loss Acute righ t otitis media 815277057 H66.91 will treat her ear infection with abx Herpes zos ter with complication 04542195 B02.8 will keep on current pain/nerve medication for now given severe pain level, though has break through pain even on medication [id number] Cody Pennington [facility] [address] [facility] [address] [address] 01/19/2021 14:51:55 01/19/2021 16:55:46 Hyperlipidemia 74195836 E78.5 we nadia be needing to check levels in a few months1 Lumbar radiculopathy 128 357275 M54.16 has failed conserv outpt treatment has [facility] PT has failed epidural inj i believe she needs to be placed on lyrica and obtain : NCT EMG and MRI [id number] Cody Pennington [facility] [address] [place] [address] 09/30/2021 10:17:28 09/30/2021 16:24:28 Herniation of lumbar intervertebral disc with sciatica 6548294916 14743 M51.16 Spinal cor d compression 57231592 G95.20 she relates it seems to be stable [id number] Cody Monet Rosalina [facility] [address] [place] [address] 05/21/2022 13:26:23 05/21/2022 16:31:25 Active or passive immunization 280884385 Z23 advised she is due for Tdap and pneumoVax Adult heal th examination 268048210 Z00.00 will set her up for cologuard as she doesnt want colonoscop y Spinal cor d compression 92899057 G95.20 she relates it seems to be stable Screening mammography 24 190526 Z12.31 Rapid atri al fibrillation 565116976 I48.91 and we will start her on eliquis 5mg bid [id number] OSIRIS GERAROD [facility] Medicine [address] [place] [address] 05/25/2022 14:08:44 05/25/2022 15:15:00 Paroxysmal atrial fibrillation 342126658 I48.0 will f/u with holter to determine the consistenc y [id number] Cody Monet Rosalina [facility] [address] [place] [address] 10/05/2022 14:17:40 10/05/2022 15:54:21 Paroxysmal atrial fibrillation 800371932 I48.0 here and had monitor and this has been ok and is asymptomat ic Atrial septal defect 701 48988 Q21.10 non issue Actinic keratosis 007 L57.0 here and we nadia refer to derm [id number] Cody Pennington [facility] [address] [address] 04/13/2023 10:39:03 04/13/2023 11:16:18 Spinal cord compression 81844403 G95.29 stable Paroxysmal atrial fibrillation 174902035 I48.0 will f/u with holter to determine the consistenc y Lipoma of skin 805849400 D17.39 agreed to assessment to confirm diagnosis of a lipoma and nothing suspicious [id number] Cody Pennington [facility] [address] [facility],[place] [address] 05/30/2023 10:16:47 05/30/2023 11:30:11 Adult health examination 548424561 Z00.00 will set her up for cologuard as she doesnt want colonoscop y Memory impairment 809226 006 R41.3 Vitamin D deficiency 347 63858 E55.9 [id number] Cody Krusetresa [facility] [address] [facility], [place] [address] 09/12/2024 10:17:11 09/12/2024 11:59:07 Memory impairment 732236284 R41.3 seems stable wondering about meds Atrial fibrillation 4943 6004 I48.91 currently stable and on xarelto and we have her on metoprolol stable so far and gets a monitor next month and rechk in cardiol in 2 month [id number] Cody Krusetresa [facility] [address] [facility], [place] [address] 10/01/2025 15:33:06 10/01/2025 16:09:22 Depression screening 656134816 Z13.31 neg Atrial fibrillation 4943 6004 I48.91 currently stable and on xarelto and we have her on metoprolol stable so far and gets a monitor next month and rechk in cardiol in 2 month Hyperlipidemia 25957004 E78.5 we nadia be needing to check levels in a few months1 Alzheimer's disease 4222 9004 G30.9 needs to be seen by dr shah again for an update Vitamin D deficiency 347 47286 E55.9 cont supp Persistent cough 0177423 02 R05.3 212736 Health Concerns Section Related Observation LastModified by Organization [place]oro flores LastModified Time None Recorded Concern Status LastModified by Organization Details LastModified Time None Recorded Advance Directives Directive None Recorded Payers Insurance Date Sequence Insurance Name Policy Number Policy Hobbs Covered Member ID Hobbs Member ID Guarantor Name 10/01/2025 1 [place] [employer] Brittany Johnston [id number] Brittany Johnston 10/01/2025 2 [facility] [place] - [place]AN 1 (MEDICARE SUPPLEMENT) [id number] Brittany Johnston [id number] Brittany Johnston Notes Date Note Type Note Provider Name and Address Organization Details Recorded Time 022 text/ht ml ROS as noted in the HPI here for lisa has been getting epidural inj from pain clinic but still having pain every day and none have workedshe will be getting a new inj to her leg [facility] more recentlyshjairo is not very active Cody Pennington DO [address] [place] [address], [address], [facility] 10/05/2022 15:27:10 023 text/ht ml ROS as noted in the HPI c/o lump on chest the patient noticed on the anterior chest wall; along the sternum; middle of the chest, not attached to the chest wall, most likely in the subcutaneous layer of her tissue started about a month agohas not progressed any furtherabout 1.5 cm in diameter not attached to chest wall or related to her breast tissue will send in US for evalutation dd/x for lipoma, cyst, calcium depositless likely to be a tumor...but agreed to US just to confirm OSIRIS GERARDO [address] [place], [address], [facility] 04/13/2023 11:10:27 023 text/ht ml ROS as noted in the HPI here for lisa and is doing ok except for her chronic back painpain in her back with radiating numbness nerve irritation down the lateral left leg Cody Pennington DO [address] [place], [address], [facility] 05/30/2023 11:29:04 024 text/ht ml ROS as noted in the HPI here for evel and mwv as noted has been dx with Alz has been tried on aricept without helpis not a candidate for iv infusion for anti amyloidnow living with daughter drives to [employer] onlydaughter follows Cody Pennington DO [address] [place], [address], [facility] 09/23/2024 21:57:36 025 text/ht ml Care Management - Atrial [...] with medication or issue with pharmacy. Cody Pennington DO [address] [facility], [place], [address], [facility] 10/01/2025 16:07:08 OBGyn Episode No OBEpisode recorded.
--- OUTSIDE RECORDS SUMMARY | 2025-10-01 20:08 | XMS_ITS | Encounter Summary ---
Author Organization [facility] Address [address] [place] [address] Phone Care Team Providers Care Corporate Giving Manager Name Role Phone Cody Romano Primary Care Provider [phone] Weston Ballesteros MD Unavailable Neeraj Osuna MD, MPH Unavailable [phone] Encounter Details Date Type Department Care Team (Late st Contact Info) Description 01/26/2018 Procedure Pass [facility] [address] [place] [address] Social History Tobacco Use Types Packs/Day Years [...] Description 10/25/2025 9:20 AM EST Office Visit [facility] [address] [facility] 3rd Floor, [address] [place] [address] Nakul Castaneda MD [address] [place] [address] [email or web address] documented as of this encounter Visit Diagnoses Not on filedocumented in this encounter Additional Health Concerns Infection Onset Date Last Indicated Resolved Time MRSA Comment:Import to add expiration date of 01/02/2022 per Infection Control as part of historical infection status reconciliation 09/26/2010 09/26/2010 01/03/20 22 1:35 AM EDT documented as of this encounter Care Teams Corporate Giving Manager Relationship Specialty Start Date End Date Cody Romano DO PCP - General Internal Medicine 01/08/16 Weston Ballesteros MD [email or web address] Thoracic Surgery 12/15/16 Neeraj Osuna MD, MPH [address] [place] [address] [email or web address] Dermatology 03/03/17 documented as of this encounter Additional Source Comments The information contained in this document represents components of the legal health record. It is not the complete legal health record.[facility]
--- OUTSIDE RECORDS SUMMARY | 2025-10-01 20:08 | XMS_ITS | Encounter Summary ---
Author Organization [facility] Address [address] [place] [address] Phone Care Team Providers Care Lead Technical Architect Name Role Phone Cody Romano Primary Care Provider [phone] Weston Ballesteros MD Unavailable Neeraj Osuna MD, MPH Unavailable [phone] Encounter Details Date Type Department Care Team (Late st Contact Info) Description 05/25/2023 Procedure Pass [facility] [address] [place] [address] Social History Tobacco Use Types Packs/Day Years [...] 10:48 AM EDKeren Philip PA-C * Patient is blind or has [...] Description 10/25/2025 9:20 AM EST Office Visit [facility] [address] [facility] 3rd Floor, [address] [place] [address] Nakul Castaneda MD [address] [place] [address] documented as of this encounter Visit Diagnoses Not on filedocumented in this encounter Additional Health Concerns Assessment Noted Time PHQ-2 Depression Total Score: 0 07/03/20 20 11:28 AM EDT documented as of this encounter Care Teams Lead Technical Architect Relationship Specialty Start Date End Date Cody Romano DO PCP - General Internal Medicine 01/08/16 Weston Ballesteros MD [email or web address] Thoracic Surgery 12/15/16 Neeraj Osuna MD, MPH [address] [place] [address] [email or web address] Dermatology 03/03/17 documented as of this encounter Additional Source Comments The information contained in this document represents components of the legal health record. It is not the complete legal health record.[facility]
--- OUTSIDE RECORDS SUMMARY | 2025-10-01 20:08 | XMS_ITS | Encounter Summary ---
Author Organization [facility] Address [address] [place] [address] Phone Care Team Providers Care Office Manager Receptionist Name Role Phone Cody Romano Primary Care Provider [phone] Weston Ballesteros MD Unavailable Neeraj Osuna MD, MPH Unavailable [phone] Encounter Details Date Type Department Care Team (Late st Contact Info) Description 07/28/2017 Procedure Pass [facility] [address] [place] [address] Social History Tobacco Use Types Packs/Day Years [...] Description 10/25/2025 9:20 AM EST Office Visit [facility] [address] [facility] 3rd Floor, [address] [place] [address] Nakul Castaneda MD [address] [place] [address] [email or web address] documented as of this encounter Visit Diagnoses Not on filedocumented in this encounter Additional Health Concerns Infection Onset Date Last Indicated Resolved Time MRSA Comment:Import to add expiration date of 01/02/2022 per Infection Control as part of historical infection status reconciliation 09/26/2010 09/26/2010 01/03/20 22 1:35 AM EDT documented as of this encounter Care Teams Office Manager Receptionist Relationship Specialty Start Date End Date Cody Romano DO PCP - General Internal Medicine 01/08/16 Weston Ballesteros MD [email or web address] Thoracic Surgery 12/15/16 Neeraj Osuna MD, MPH [address] [place] [address] [email or web address] Dermatology 03/03/17 documented as of this encounter Additional Source Comments The information contained in this document represents components of the legal health record. It is not the complete legal health record.[facility]
--- OUTSIDE RECORDS SUMMARY | 2025-10-01 20:08 | XMS_ITS | Encounter Summary ---
Author Organization [facility] Address [address] [place] [address] Phone Care Team Providers Care Net Ui Developer Name Role Phone Cody Romano DO Primary Care Provider [phone] Weston Ballesteros MD Unavailable Neeraj Osuna MD, MPH Unavailable [phone] Encounter Details Date Type Department Care Team (Late st Contact Info) Description 10/28/2017 Ancillary Orders [facility], [facility]-Ray - [facility] [address] [place] [address] Cody Romano DO [address] [place] [address] [email or web address] Pre-employment health screening examination Social History Tobacco Use Types Packs/Day Years [...] Description 10/25/2025 9:20 AM EST Office Visit [facility] [address] [place] [address] 3rd Floor, [address] [place] [address] Nakul Castaneda MD [address] [place] [address] [email or web address] documented as of this encounter Results * XR CHEST PA AND LATERAL 2 VIEWS (10/28/2017 8:56 AM EST) Anatomical Region Laterality Modality Chest Radiographic Cassie ging 10/28/2017 8:59 AM EST Impressions 10/28/2017 9:01 AM EST No acute chest disease. POS - [id number] Narrative 10/28/2017 9:01 AM EST HISTORY: As above. COMPARISON: 01/04/2017. CHEST RADIOGRAPH FINDINGS: 2 views obtained. Heart is normal in size. Stable median sternotomy changes and mild main pulmonary artery enlargement. Stable hyperinflation. Right lung base atelectasis has resolved. Stable minor linear scarring in the lateral lower left lung zone. Stable severe osteopenia. No acute soft tissue findings. Procedure Note Rubi Piper MD - 10/28/2017 HISTORY: As above. COMPARISON: 01/04/2017. CHEST RADIOGRAPH FINDINGS: 2 views obtained. Heart is normal in size. Stable median sternotomychanges and mild main pulmonary artery enlargement. Stablehyperinflation. Right lung base atelectasis has resolved. Stable minorlinear scarring in the lateral lower left lung zone. Stable severeosteopenia. No acute soft tissue findings. IMPRESSION: No acute chest disease. POS - [id number] us Cody Romano DO IMG XR CHEST Final Result documented in this encounter Visit Diagnoses Diagnosis Pre-employment health screening examination Health examination of defined subpopulation Pre-employment health screening examination Health examination of defined subpopulation documented in this encounter Additional Health Concerns Infection Onset Date Last Indicated Resolved Time MRSA Comment:Import to add expiration date of 01/02/2022 per Infection Control as part of historical infection status reconciliation 09/26/2010 09/26/2010 01/03/20 22 1:35 AM EDT documented as of this encounter Care Teams Net Ui Developer Relationship Specialty Start Date End Date Cody Romano DO PCP - General Internal Medicine 01/08/16 Weston Ballesteros MD [email or web address] Thoracic Surgery 12/15/16 Neeraj Osuna MD, MPH [address] [place] [address] [email or web address] [email or web address] 03/03/17 documented as of this encounter Additional Source Comments The information contained in this document represents components of the legal health record. It is not the complete legal health record.[facility]
--- OUTSIDE RECORDS SUMMARY | 2025-10-01 20:08 | XMS_ITS | Encounter Summary ---
Author Organization [facility] Address [address] [place] [address] Phone Care Team Providers Care Care Team Coordinator Scheduler Name Role Phone Cody Romano Primary Care Provider [phone] Weston Ballesteros MD Unavailable Neeraj Osuna MD, MPH Unavailable [phone] Encounter Details Date Type Department Care Team (Latest Contact Info) Description 11/23/2018 Ancillary Orders Virtual Department [address] [place] [address] Sukhdev Logan MD [address] [place] [address] [email or web address] Age-related osteoporosis without current pathological fracture Social History Tobacco Use Types Packs/Day Years [...] Office Visit [facility] [address] [facility] 3rd Floor, [address] [place] [address] Nakul Castaneda MD [address] [place] [address] [email or web address] documented as of this encounter Results * BD DXA AXIAL (SPINE) WITH HIP (08/03/2019 10:17 AM EDT) Anatomical Region Laterality Modality Bone Density Bone Density 08/03/2019 10:2 1 AM EDT Impressions 08/03/2019 10:33 AM EDT Osteopenia POS - [id number] Narrative 08/03/2019 10:33 AM EDT CLINICAL HISTORY: [...] the right hip was calculated at 0.801 gm/eo7wjsp a T-score of -1.2 falling within the WHO classification ofosteopenia. Z-score of 0.3. 5.4% increase Total bone mineral density in the left hip was calculated at 0.811 gm/bk4jjvy a T-score of -1.1 falling within the WHO classification ofosteopenia. Z-score of 0.4. 2.5% increase IMPRESSION: Osteopenia POS - [id number] Sukhdev IRVING BD BONE DENSITY DEXA Fi nal Result documented in this encounter Visit Diagnoses Diagnosis Age-related osteoporosis without current pathological fracture Age-related osteoporosis without current pathological fracture documented in this encounter Additional Health Concerns Infection Onset Date Last Indicated Resolved Time MRSA Comment:Import to add expiration date of 01/02/2022 per Infection Control as part of historical infection status reconciliation 09/26/2010 09/26/2010 01/03/20 22 1:35 AM EDT documented as of this encounter Care Teams Care Team Coordinator Scheduler Relationship Specialty Start Date End Date Cody Romano DO [email or web address] PCP - General Internal Medicine 01/08/16 Weston Ballesteros MD [email or web address] Thoracic Surgery 12/15/16 Neeraj Osuna MD, MPH [address] [place] [address] [email or web address] Dermatology 03/03/17 documented as of this encounter Additional Source Comments The information contained in this document represents components of the legal health record. It is not the complete legal health record.[facility]
--- OUTSIDE RECORDS SUMMARY | 2025-10-01 20:08 | XMS_ITS | Encounter Summary ---
Author Organization [facility] Address [address] [facility] [address] [place] [address] Phone Care Team Providers Care Physical Medicine Teacher Name Role Phone Cody Romano DO Primary Care Provider [phone] Weston Ballesteros MD Unavailable Neeraj Osuna MD, MPH Unavailable [phone] Encounter Details Date Type Department Care Team (Late st Contact Info) Description 07/06/2018 Ancillary Orders Virtual Department [address] [place] [address] Cody Romano DO [address] [facility] [place] [address] [email or web address] Breast screening Social History Tobacco Use Types Packs/Day Years [...] Description 10/25/2025 9:20 AM EST Office Visit [facility] [address] [facility] 3rd Floor, [address] [place] [address] Nakul Castaneda MD [address] [place] [address] [email or web address] documented as of this encounter Results * BI MAMMOGRAM SCREENING WITH TOMOSYNTHESIS WITH CAD (BILATERAL) (09/12/2018 9:34 AM EST) Anatomical Region Laterality Modality Breast Left, Breast Right, Breast Bilateral Bila teral Mammography 09/13/2018 12:4 3 AM EST Impressions 09/13/2018 12:45 AM EST No mammographic evidence of malignancy. RECOMMENDED FOLLOWUP: Routine screening mammography is recommended, as clinically appropriate. The results will be sent to the patient. BI-RADS CATEGORY: 1 - Negative. BREAST DENSITY: There are scattered fibroglandular densities. POS - CDHMAMA Narrative 09/13/2018 12:45 AM EST BI MAMMOGRAM SCREENING WITH TOMOSYNTHESIS WITH CAD (BILATERAL) HISTORY: Screening. COMPARISON: Prior studies dating back to 2011, most recently 08/31/2017. TECHNIQUE: Digital breast tomosynthesis was performed in CC and MLO projections. Reconstructed 2-D C-views generated from the tomosynthesis images. Images interpreted in conjunction with R-2 Image Harvesting Manager computer-aided detection (CAD). FINDINGS: BREAST DENSITY: There are scattered fibroglandular densities. There are no suspicious masses, suspicious areas of architectural distortion or suspicious clusters of microcalcifications. Procedure Note Charity Blackwood MD - 09/13/2018 BI MAMMOGRAM SCREENING WITH TOMOSYNTHESIS WITH CAD (BILATERAL) HISTORY: Screening. COMPARISON: Prior studies dating back to 2011, most recently 08/31/2017. TECHNIQUE: Digital breast tomosynthesis was performed in CC and MLOprojections. Reconstructed 2-D C-views generated from the tomosynthesisimages. Images interpreted in conjunction with R-2 Image Checkercomputer-aided detection (CAD). FINDINGS: BREAST DENSITY: There are scattered fibroglandular densities. There are no suspicious masses, suspicious areas of architecturaldistortion or suspicious clusters of microcalcifications. IMPRESSION: No mammographic evidence of malignancy. RECOMMENDED FOLLOWUP: Routine screening mammography is recommended, asclinically appropriate. The results will be sent to the patient. BI-RADS CATEGORY: 1 - Negative. BREAST DENSITY: There are scattered fibroglandular densities. POS - CDHMAMA Cody Romano DO IMG MG EXAMS Final Result documented in this encounter Visit Diagnoses Diagnosis Breast screening Breast screening, unspecified Breast screening Breast screening, unspecified documented in this encounter Additional Health Concerns Infection Onset Date Last Indicated Resolved Time MRSA Comment:Import to add expiration date of 01/02/2022 per Infection Control as part of historical infection status reconciliation 09/26/2010 09/26/2010 01/03/20 22 1:35 AM EDT documented as of this encounter Care Teams Physical Medicine Teacher Relationship Specialty Start Date End Date Cody Romano DO [email or web address] PCP - General Internal Medicine 01/08/16 Weston Ballesteros MD [email or web address] Thoracic Surgery 12/15/16 Neeraj Osuna MD, MPH [address] [place] [address] [email or web address] [email or web address] 03/03/17 documented as of this encounter Additional Source Comments The information contained in this document represents components of the legal health record. It is not the complete legal health record.[facility]
--- OUTSIDE RECORDS SUMMARY | 2025-10-01 20:08 | XMS_ITS | Encounter Summary ---
Author Organization [facility] Address [address] [place] [address] Phone Care Team Providers Care Flour Worker Name Role Phone Cody Romano Primary Care Provider [phone] Weston Ballesteros MD Unavailable Neeraj Osuna MD, MPH Unavailable [phone] Encounter Details Date Type Department Care Team (Late st Contact Info) Description 12/14/2018 Ancillary Orders Virtual Department [address] [place] [address] Michelle Oneill, WIND OPERATIONS MANAGER [address] [place] [address] [email or web address] Cough Social History Tobacco Use Types Packs/Day Years [...] Description 10/25/2025 9:20 AM EST Office Visit [facility] [address] [facility] 3rd Floor, [address] [place] [address] Nakul Castaneda MD [address] [place] [address] [email or web address] documented as of this encounter Visit Diagnoses Diagnosis Cough documented in this encounter Additional Health Concerns Infection Onset Date Last Indicated Resolved Time MRSA Comment:Import to add expiration date of 01/02/2022 per Infection Control as part of historical infection status reconciliation 09/26/2010 09/26/2010 01/03/20 22 1:35 AM EDT documented as of this encounter Care Teams Flour Worker Relationship Specialty Start Date End Date Cody Romano DO [email or web address] PCP - General Internal Medicine 01/08/16 Weston Ballesteros MD [email or web address] Thoracic Surgery 12/15/16 Neeraj Osuna MD, MPH [address] [place] [address] [email or web address] Dermatology 03/03/17 documented as of this encounter Additional Source Comments The information contained in this document represents components of the legal health record. It is not the complete legal health record.[facility]
--- OUTSIDE RECORDS SUMMARY | 2025-10-01 20:08 | XMS_ITS | Encounter Summary ---
Author Organization [facility] Address [address] [place] [address] Phone Care Team Providers Care Gill Tender Name Role Phone Cody Romano Primary Care Provider [phone] Weston Ballesteros MD Unavailable Neeraj Osuna MD, MPH Unavailable [phone] Encounter Details Date Type Department Care Team (Late st Contact Info) Description 04/08/2020 Procedure Pass [facility] [address] [place] [address] Social History Tobacco Use Types Packs/Day Years [...] Description 10/25/2025 9:20 AM EST Office Visit [facility] [address] [facility] 3rd Floor, [address] [place] [address] Nakul Castaneda MD [address] [place] [address] [email or web address] documented as of this encounter Visit Diagnoses [...] documented as of this encounter Care Teams Gill Tender Relationship Specialty Start Date End Date Cody Romano DO PCP - General Internal Medicine 01/08/16 Weston Ballesteros MD [email or web address] Thoracic Surgery 12/15/16 Neeraj Osuna MD, MPH [address] [place] [address] [email or web address] 03/03/17 documented as of this encounter Additional Source Comments The information contained in this document represents components of the legal health record. It is not the complete legal health record.[facility]
--- OUTSIDE RECORDS SUMMARY | 2025-10-01 20:08 | XMS_ITS | Encounter Summary ---
Author Organization [facility] Address [address] [place] [address] Phone Care Team Providers Care Studio Designer Name Role Phone Cody Romano Primary Care Provider [phone] Weston Ballesteros MD Unavailable Neeraj Osuna MD, MPH Unavailable [phone] Encounter Details Date Type Department Care Team (Late st Contact Info) Description 05/22/2024 Procedure Pass [facility] [address] [place] [address] Social History Tobacco Use Types Packs/Day Years [...] Description 10/25/2025 9:20 AM EST Office Visit [facility] [address] [facility] 3rd Floor, [address] [place] [address] Nakul Castaneda MD [address] [place] [address] documented as of this encounter Visit Diagnoses Not on filedocumented in this encounter Additional Health Concerns Assessment Noted Time PHQ-2 Depression Total Score: 0 07/03/20 20 11:28 AM EDT documented as of this encounter Care Teams Studio Designer Relationship Specialty Start Date End Date Cody Romano DO PCP - General Internal Medicine 01/08/16 Weston Ballesteros MD [email or web address] Thoracic Surgery 12/15/16 Neeraj Osuna MD, MPH [address] [place] [address] [email or web address] Dermatology 03/03/17 documented as of this encounter Additional Source Comments The information contained in this document represents components of the legal health record. It is not the complete legal health record.[facility]
--- OUTSIDE RECORDS SUMMARY | 2025-10-01 20:08 | XMS_ITS | Encounter Summary ---
Author Organization Located Within [facility] Address [address] [place] [address] Phone Care Team Providers Care Light Bulb Tester Name Role Phone Cody Romano DO Primary Care Provider [phone] Weston Ballesteros MD Unavailable Neeraj Osuna MD, MPH Unavailable [phone] Encounter Details Date Type Department Care Team (Late st Contact Info) Description 10/19/2017 Transcribe Orders [address] [place] [address] Cody Romano DO [address] [place], [place] [id number] [email or web address] Pure hypercholesterolemia (Primary Dx) Social History Tobacco Use Types [...] Date Author No 03/21/2017 10:48 AM Keren Solozrano PA-C documented in this encounter Plan of Treatment Upcoming Encounters Date Type Department Care Team (Late st Contact Info) Description 10/25/2025 9:20 AM EST Office Visit [facility] [address] 3rd Floor, [address] [place] [address] Nakul Castaneda MD [address] [place] [phone] [email or web address] documented as of this encounter Results * (ABNORMAL) Lipid panel (10/19/2017 8:57 AM EST) HDL 73 mg/dL [facility] Comment: Interpretation: Risk Level Females Decreased >55mg/dL Average 50-55 mg/dL Increased <50 mg/dL CHOLESTEROL 266(H) 0 - 240 mg/dL [facility] TRIGLYCERIDES 220(H) 30 - 160 mg/dL [facility] LDL 149(H) 50 - 129 mg/dL [facility] Comment: LDL levels in terms of risk for coronary heart disease: <100 mg/dL: Optimal 100-129 mg/dL: Near or above optimal 130-159 mg/dL: Borderline high 160-189 mg/dL: High >190 mg/dL: Very High CARDIAC RISK RATIO 3.6 3.3 - 4.4 C [facility] Blood 10/19/2017 8:57 AM EST 10/19/2017 10:07 AM EST us Cody A Bigda DO LAB BLOOD BKR ORDERABLES Final R esult [address] [address] * (ABNORMAL) Comprehensive metabolic panel (10/19/2017 8:57 AM EST) SODIUM 140 133 - 146 mmol/L [facility] POTASSIUM 4.1 3.3 - 5.1 mmol/L [facility] CHLORIDE 100 96 - 108 mmol/L [facility] CO2 32 21 - 35 mmol/L [facility] BUN 20(H) 6 - 19 mg/dL [facility] CREATININE 0.50 0.5 - 1.5 mg/dL [facility] GLUCOSE 87 70 - 99 mg/dL [facility] ALBUMIN 3.9 3.9 - 4.8 g/dL [facility] TOTAL PROTEIN 6.7 6.5 - 8.0 g/dL [facility] CALCIUM 9.0 8.4 - 10.3 mg/dL [facility] ALKALINE PHOSPHATASE 75 39 - 117 U/L [facility] TOTAL BILIRUBIN 1.1 0 - 1.2 mg/dL [facility] AST 20 0 - 37 U/L [facility] ALT 19 0 - 40 U/L [facility] GLOBULIN 2.8 1 - 4.8 g/dL [facility] EGFR >60 60 - 1000 mL/min/1.7 3m2 [facility] Comment:Abnormal if <60. If patient is -Niuean, multiply the result by 1.21. ANION GAP 12 10 - 20 mmol/L [facility] Blood 10/19/2017 8:57 AM EST 10/19/2017 10:07 AM EST us Cody A Bigda DO LAB BLOOD BKR ORDERABLES Final R esult [facility] [address] [place] [address] documented in this encounter Visit Diagnoses Diagnosis Pure hypercholesterolemia- Primary documented in this encounter Additional Health Concerns Infection Onset Date Last Indicated Resolved Time MRSA Comment:Import to add expiration date of 01/02/2022 per Infection Control as part of historical infection status reconciliation 09/26/2010 09/26/2010 01/03/20 22 1:35 AM EDT documented as of this encounter Care Teams Light Bulb Tester Relationship Specialty Start Date End Date Cody Romano DO PCP - General Internal Medicine 01/08/16 Weston Ballesteros MD [email or web address] Thoracic Surgery 12/15/16 Neeraj Osuna MD, MPH [address] [place] [id number] [email or web address] Dermatology 03/03/17 documented as of this encounter Additional Source Comments The information contained in this document represents components of the legal health record. It is not the complete legal health record.Loc[facility]
--- OUTSIDE RECORDS SUMMARY | 2025-10-01 20:08 | XMS_ITS | Encounter Summary ---
Author Organization [facility] Address [address] [place] [address] Phone Care Team Providers Care Desktop Support Associate Name Role Phone Cody Romano Primary Care Provider [phone] Weston Ballesteros MD Unavailable Neeraj Osuna MD, MPH Unavailable [phone] Encounter Details Date Type Department Care Team (Late st Contact Info) Description 12/13/2018 Ancillary Orders [facility], X-Ray - [address] [address] Michelle Oneill, HEAT TREATER HEAD [address] [place] [phone] [email or web address] Acute bronchitis, unspecified organism Social History Tobacco Use Types Packs/Day Years [...] Description 10/25/2025 9:20 AM EST Office Visit [facility] [address] [place] [address] 3rd Floor, [address] [place] [address] Nakul Castaneda MD [address] [place] [phone] [email or web address] documented as of this encounter Results * XR CHEST PA AND LATERAL 2 VIEWS (12/13/2018 12:44 PM EST) Anatomical Region Laterality Modality Chest Radiographic Cassie ging 12/13/2018 3:23 PM EST Impressions 12/13/2018 3:45 PM EST Some chronic scarring or linear atelectasis suggested at the right base. No consolidation. POS - [id number] Edited by: Annetta Wynn on 12/13/2018 3:44 PM Narrative 12/13/2018 3:45 PM EST PA and lateral views of the chest obtained. Several prior, most recent October 28, 2017. Some residual chronic linear atelectatic changes at the right base persist. No pleural fluid or consolidation. No worrisome change in heart or mediastinal contours. No free air or pneumothorax. No signs of compression deformity. Procedure Note Alonso Camejo MD - 12/13/2018 PA and lateral views of the chest obtained. Several prior, most recentOctober 28, 2017. Some residual chronic linear atelectatic changes at theright base persist. No pleural fluid or consolidation. No worrisome changein heart or mediastinal contours. No free air or pneumothorax. No signs ofcompression deformity. IMPRESSION: Some chronic scarring or linear atelectasis suggested at the right base.No consolidation. POS - [id number] Edited by: Annetta Wynn on 12/13/2018 3:44 PM Michelle Oneill HEAT TREATER HEAD IMG XR CHEST Final Resul t documented in this encounter Visit Diagnoses Diagnosis Acute bronchitis, unspecified organism Acute bronchitis, unspecified organism documented in this encounter Additional Health Concerns Infection Onset Date Last Indicated Resolved Time MRSA Comment:Import to add expiration date of 01/02/2022 per Infection Control as part of historical infection status reconciliation 09/26/2010 09/26/2010 01/03/20 22 1:35 AM EDT documented as of this encounter Care Teams Desktop Support Associate Relationship Specialty Start Date End Date Cody Romano DO PCP - General Internal Medicine 01/08/16 Weston Ballesteros MD [email or web address] Thoracic Surgery 12/15/16 Neeraj Osuna MD, MPH [address] [place] [address] [email or web address] Dermatology 03/03/17 documented as of this encounter Additional Source Comments The information contained in this document represents components of the legal health record. It is not the complete legal health record.[facility]
--- OUTSIDE RECORDS SUMMARY | 2025-10-01 20:08 | XMS_ITS | Encounter Summary ---
Author Organization Located Within [facility] Address [address] [place] [address] Phone Care Team Providers Care Biomedical Engineering Professor Name Role Phone Cody Romano Pacheco REDMAN Primary Care Provider [phone] Weston Ballesteros MD Unavailable Neeraj Osuna MD, MPH Unavailable [phone] Reason for Referral * MRI/CAT Scan - New Request Specialty Diagnoses / Procedures Referred By Contlexie t Referred To Contact Radiology Diagnoses Screening for cardiovascular condition Procedures NC Myocardial Perfusion Pharmacologic Stress Multiple NC Myocardial Perfusion Exercise Multiple Claribel Valentin DNP Phone: tel: fax: mailto: Referral ID Status Reason Start Date Expiration Date V isits Requested Visits Authorized [id number] New Request 10/25/2024 1 1 Encounter Details Date Type Department Care Team (Latest Contact Info) Description 11/16/2024 Ancillary Orders [facility] [address] 3rd [address], [address] [place] [address] Claribel Valentin DNP [address], [address] [place], [place] [id number] [email or web address] Hyperlipidemia (Primary Dx); Screening for cardiovascular condition; Paroxysmal atrial fibrillation Social History Tobacco Use [...] Description 10/25/2025 9:20 AM EST Office Visit [facility] [address] [place] [address] 3rd Floor, [address] [place] [address] Nakul Castaneda MD [address] [place] [phone] [email or web address] documented as of this encounter Results * NC Myocardial Perfusion Pharmacologic Stress Multiple (11/16/2024 11:01 AM EST) Max Predicted Heart Rate 146 bpm Stress/rest perfusion ratio 0.90 Nuc Stress EF 51 % SNMDIAVOL 61.0 mL SNMSYSVOL 30.0 mL Nuc Rest EF 46 % RNMDIAVOL 67.0 mL RNMSYSVOL 36.0 mL Anatomical Region Laterality Modality Heart, Vascular Ultrasound Narrative 11/19/2024 9:36 AM EST Stress ejection fraction is 51%. Probably normal study Normal study. There is no evidence of myocardial infarction or ischemia. LV function was calculated to be borderline reduced but visually looked okay. ECG STRESS REPORT: WALKING REGADENOSON STUDY BMI: 24.53 The Nuclear Stress Test was performed as a pharmacologic study due to baseline rapid A-fib. Brittany Johnston received 0.4 mg of Regadenoson after walking on the treadmill for 1 minute at 1.0 MPH with no treadmill incline. Regadenoson was given IV push over 10 seconds as per protocol by Anali Alarcon (FIDENCIO), immediately followed by injection of Tc99m Sestamibi by Brayan Wilkins, the wood technologist. 1. EKG: Baseline EKG showed rapid atrial fibrillation rate 120s. Following administration of lexiscan there were no ECG changes meeting criteria for ischemia 2. SYMPTOMS: No chest pain symptoms concerning for angina 3. PHYSIOLOGY: Resting HR was 120s. After walking and Lexiscan injection, HR 140s. Blood pressure: 126/80 at rest, 128/80 following administration of lexiscan, and 110/80 on discharge from stress lab. 4. ARRHYTHMIAS: Atrial fibrillation throughout testing. Occasional isolated PVCs Conclusion: ECG portion of nuclear stress test without ECG changes meeting criteria for ischemia and without symptoms concerning for angina. Nuclear images pending and will be reported separately. See attached stress report for full details. Anali Alarcon NP ____ NUCLEAR REPORT: TYPE OF STUDY: Myocardial Perfusion Imaging after a Walking Regadenoson protocol with gated SPECT. PROTOCOL USED: One day Regadenoson rest-stress protocol in the supine position. Images were obtained in gated tomographic technique. Images were processed in SPECT format, reconstructed tomographically and compared [id number] in short axis, horizontal long axis and vertical long axis. DOSE: Technetium 99m Sestamibi 7.2 mCi injected intravenously in the right hand at rest on 11/16/2024 with post injection scan time of 60 minutes. Technetium 99m Sestamibi 21.5 mCi injected intravenously in the right hand after Regadenoson infusion on 11/16/2024 with post injection scan time of 40 minutes. Overall image quality is good. No motion artifact is present. Stress Function Defect Left ventricular global function is moderately reduced during stress. Stress ejection fraction is 51%. The stress end diastolic cavity size is normal. Stress end diastolic size: 61.0 mL. The stress end systolic cavity size is normal. Stress end systolic size: 30.0 mL. Rest Function Defect Left ventricular global function is moderately reduced at rest. Resting ejection fraction was 46%. The rest end diastolic cavity size is normal. Rest end diastolic size: 67.0 ml. The rest end systolic cavity size is normal. Rest end systolic size: 44.0 mL. Nuclear Prior Study There is no prior study available for comparison. Nuclear Ancillary Finding There is no evidence of transient ischemic dilation (TID). The TID ratio is 0.90, which is normal. Perfusion Scoring Resting Summed Score: 0 Percent Normal: 0.00% The left ventricular perfusion is normal. SUP[facility] REST Perfusion Scoring Stress Summed Score: 0 Percent Normal: 0.00% The left ventricular perfusion is normal. SUPINE IMAGING STRESS Perfusion Scores: SRS Score: 0 Percentage Abnormal: 0.00% Perfusion Scores: SSS Score: 0 Percentage Abnormal: 0.00% Perfusion Scores: SDS Score: 0 Percentage Abnormal: 0.00% Procedure Note Carlos Wallace MD - 11/19/2024 Stress ejection fraction is 51%. Probably normal study Normal study. There is no evidence of myocardial infarction or ischemia. LV function was calculated to be borderline reduced but visually lookedokay. us Claribel Valentin DNP CV NM CARDIAC Final Resu lt documented in this encounter Visit Diagnoses Diagnosis Screening for cardiovascular condition- Primary Screening for other and unspecified cardiovascular conditions Hyperlipidemia- Primary Other and unspecified hyperlipidemia Screening for cardiovascular condition Screening for other and unspecified cardiovascular conditions Paroxysmal atrial fibrillation Atrial fibrillation documented in this encounter Additional Health Concerns Assessment Noted Time PHQ-2 Depression Total Score: 0 07/03/20 20 11:28 AM EDT documented as of this encounter Care Teams Biomedical Engineering Professor Relationship Specialty Start Date End Date Cody Romano DO PCP - General Internal Medicine 01/08/16 Weston Ballesteros MD [email or web address] Thoracic Surgery 12/15/16 Neeraj Osuna MD, MPH [address] [place] [address] [email or web address] Dermatology 03/03/17 documented as of this encounter Additional Source Comments The information contained in this document represents components of the legal health record. It is not the complete legal health record.[facility]
== END 2025-10-01 16:09 | disposition home or self-care (01) ==
LOC: HO.MANLDS 16:08
PROVIDERS: Visit Provider Internal Medicine
DX: I48.91 Unspecified atrial fibrillation (principal); E55.9 Vitamin D deficiency, unspecified
CPT/HCPCS: 36415; 80053; 82306; 82607; 84443; 85025